=== PATIENT | female | born 1970 | race Caucasian/White ===

== ENCOUNTER → 2023-07-25 13:57 | Outpatient (CLI) | payer OTHER, MEDICAID, SELFPAY ==
[2023-07-25 14:47] LABS: Add Manual Diff / Slide Review NO; Basophils Absolute Auto 0 /uL (0-100); Basophils Percent Auto 0.1 % (0-2); Eosinophils Absolute Auto 400 /uL (0-450); Eosinophils Percent Auto 4.2 % (2-4); Hematocrit 31.4 % (36-46); Hemoglobin 10.7 g/dL (12.0-16.0); Lymphocytes Absolute Auto 1500 /uL (1100-4500); Lymphocytes Percent Auto 14.3 % (25-40); Mean Corpuscular Hemoglobin 29.6 PG (26-34); Monocytes Absolute Auto 700 /uL (0-900); Monocytes Percent Auto 7.3 % (3-14); Neutrophils Absolute Auto 7600 /uL (1500-7000); Neutrophils Percent Auto 74.1 % (50-75); Platelet Count 569 X10^3/uL (150-400); Red Blood Cell Count 3.61 X10^6/uL (4.0-5.2); Red Cell Distribution Width 13.7 % (11.6-14.8); White Blood Cell Count 10.3 X10^3/uL (4.5-11.0)
[2023-07-25 15:16] LABS: Alanine Aminotransferase 19 IU/L (<35); Albumin 3.2 g/dL (3.5-5.0); Albumin Globulin Ratio 0.8 (1.0-2.8); Alkaline Phosphatase 122 U/L (38-126); Aspartate Aminotransferase 25 IU/L (14-36); BUN Creatinine Ratio 20.4 (6-22); Bilirubin Total 0.5 mg/dL (0.2-1.3); Blood Urea Nitrogen 11 mg/dL (7-17); Calcium 9.3 mg/dL (8.4-10.2); Carbon Dioxide 31 mmol/L (22-32); Chloride 98 mmol/L (98-107); Estimated Glomerular Filt Rate > 60 mL/min (>60); Globulin 3.9 g/dL (1.7-4.1); Glucose 95 mg/dL (70-100); HEMOLYSIS < 15 (0-50); Potassium 4.8 mmol/L (3.4-5.1); Sodium 133 mmol/L (137-145); Total Protein 7.1 g/dL (6.3-8.2)
[2023-07-25 15:45] LABS: TSH w/ Reflex to FT4 1.37 uIU/mL (0.47-4.68)
[2023-07-25 15:56] LABS: Erythrocyte Sedimentation Rate 51 MM/HR (0-20)
[2023-07-25 16:06] LABS: Vitamin B12 313 pg/mL (239-931)
== END ==
PROVIDERS: Referring Provider Nurse Practitioner Family; Visit Provider Nurse Practitioner Family
DX: R20.0 Anesthesia of skin (principal)
CPT/HCPCS: 36415; 80053; 82607; 82948; 84443; 85025; 85651

== ENCOUNTER → 2023-07-29 12:39 | Outpatient (CLI) | payer OTHER, MEDICAID, SELFPAY ==
[2023-07-29 13:05] LABS: Reticulocyte Count, Percent 1.2 % (1.1-2.6)
[2023-07-29 13:18] LABS: Iron 29 ug/dL (37-170)
[2023-07-29 14:33] LABS: Percent Iron Saturation 14 % (15-50); Total Iron Binding Capacity 202 ug/dL (265-497); Transferrin 176 mg/dL (206-381)
[2023-07-29 14:52] LABS: Vitamin B12 Reflex MMA if <400 269 pg/mL (239-931)
[2023-07-30 03:36] LABS: Homocysteine 13.6 umol/L (0.0-14.5)
[2023-07-31 10:49] LABS: Alpha-1 Globulin, Ur 3.5 % (.); Beta Globulin, Ur 15.5 % (.); Gamma Globulin, Ur 16.6 % (.); M-Spike % Not Observed % (Not Observed); Urine Total Protein 42.6 mg/dL (Not Estab.)
[2023-07-31 14:45] LABS: Albumin 2.5 g/dL (2.9-4.4); Alpha-1-Globulin 0.3 g/dL (0.0-0.4); Alpha-2-Globulin 1.1 g/dL (0.4-1.0); Gamma Globulin 1.8 g/dL (0.4-1.8); Globulin Total 4.1 g/dL (2.2-3.9); Protein, Total 6.6 g/dL (6.0-8.5)
[2023-07-31 17:12] LABS: ANA Screen, IFA Negative (.)
[2023-08-02 00:07] LABS: Methylmalonic Acid,Serum 652 nmol/L (0-378)
== END ==
PROVIDERS: PCP Family Medicine; Referring Provider Family Medicine; Visit Provider Family Medicine
DX: D64.9 Anemia, unspecified (principal); R20.0 Anesthesia of skin; R20.2 Paresthesia of skin
CPT/HCPCS: 36415; 82306; 82607; 83090; 83540; 83550; 83921; 84155; 84156; 84165; 84166; 84466; 85045; 86038

== ENCOUNTER → 2023-10-17 15:28 | Outpatient (CLI) | payer OTHER, MEDICAID, SELFPAY ==
--- NOTE | 2023-10-17 15:38 | DI.US.S_ITS ---
PROCEDURE: US PERIPH VENOUS LOW EXTREM RT INDICATIONS: POSSIBLE DVT TECHNIQUE: Real-time imaging, as well as color and pulse Doppler interrogation, were performed of the lower extremity deep veins from the inguinal ligament to the popliteal fossa, with documentation of the visualized calf veins. COMPARISON: None. FINDINGS: The common femoral, femoral, popliteal, and the visualized calf veins are normally compressible, and free of intraluminal thrombus. Color and pulse Doppler demonstrate normal phasic intraluminal flow. There is normal augmentation response to distal compression maneuver. IMPRESSION: No right lower extremity DVT. Dictated by: Gamaliel Villagomez M.D. on 10/17/2023 at 17:48 Approved by: Gamaliel Villagomez M.D. on 10/17/2023 at 17:49
== END ==
PROVIDERS: PCP Family Medicine; Referring Provider Family Medicine; Visit Provider Family Medicine
DX: R20.0 Anesthesia of skin (principal); R20.2 Paresthesia of skin; D50.9 Iron deficiency anemia, unspecified; E55.9 Vitamin D deficiency, unspecified; E53.8 Deficiency of other specified B group vitamins; D64.9 Anemia, unspecified
CPT/HCPCS: 36415; 82306; 82607; 82728; 83540; 83550; 83921; 85025; 85651; 93971

== ENCOUNTER → 2023-10-17 16:10 | Outpatient (CLI) | payer OTHER, MEDICAID, SELFPAY ==
[2023-10-17 16:50] LABS: Add Manual Diff / Slide Review NO; Basophils Absolute Auto 100 /uL (0-100); Basophils Percent Auto 1.1 % (0-2); Eosinophils Absolute Auto 400 /uL (0-450); Eosinophils Percent Auto 4.7 % (2-4); Lymphocytes Absolute Auto 1200 /uL (1100-4500); Lymphocytes Percent Auto 16.2 % (25-40); Mean Corpuscular HGB Conc 33.8 % (30-36); Mean Corpuscular Hemoglobin 26.4 PG (26-34); Mean Corpuscular Volume 78.1 fL (80-100); Monocytes Absolute Auto 400 /uL (0-900); Monocytes Percent Auto 5.8 % (3-14); Neutrophils Absolute Auto 5400 /uL (1500-7000); Neutrophils Percent Auto 72.2 % (50-75); Platelet Count 640 X10^3/uL (150-400); Red Blood Cell Count 2.66 X10^6/uL (4.0-5.2); Red Cell Distribution Width 16.1 % (11.6-14.8); White Blood Cell Count 7.5 X10^3/uL (4.5-11.0)
[2023-10-17 17:03] LABS: Hematocrit 21.2 % (36-46)
[2023-10-17 17:30] LABS: Vitamin D 25 Hydroxy (D3) 32.5 ng/mL (30.0-100.0)
[2023-10-17 17:42] LABS: Erythrocyte Sedimentation Rate > 140 MM/HR (0-20)
[2023-10-17 17:46] LABS: Ferritin 214 ng/mL (11-264)
[2023-10-17 17:51] LABS: HEMOLYSIS < 15 (0-50); Iron 32 ug/dL (37-170)
[2023-10-17 18:00] LABS: Vitamin B12 706 pg/mL (239-931)
[2023-10-17 18:02] LABS: Percent Iron Saturation 15 % (15-50); Total Iron Binding Capacity 217 ug/dL (265-497); Transferrin 184 mg/dL (206-381)
[2023-10-22 07:59] LABS: Methylmalonic Acid,Serum 712 nmol/L (0-378)
== END ==
LOC: LAB 16:18
PROVIDERS: PCP Family Medicine; Referring Provider Family Medicine; Visit Provider Family Medicine
DX: D50.9 Iron deficiency anemia, unspecified (principal); E55.9 Vitamin D deficiency, unspecified; E53.8 Deficiency of other specified B group vitamins; D64.9 Anemia, unspecified
CPT/HCPCS: 36415; 82306; 82607; 82728; 83540; 83550; 83921; 85025; 85651

== ENCOUNTER → 2023-11-05 12:05 | Outpatient (CLI) | payer OTHER, MEDICAID, SELFPAY ==
[2023-11-05 12:57] LABS: Add Manual Diff / Slide Review NO; Basophils Absolute Auto 100 /uL (0-100); Basophils Percent Auto 1.3 % (0-2); Eosinophils Absolute Auto 500 /uL (0-450); Eosinophils Percent Auto 7.8 % (2-4); Lymphocytes Absolute Auto 1000 /uL (1100-4500); Lymphocytes Percent Auto 15.2 % (25-40); Mean Corpuscular HGB Conc 34.2 % (30-36); Mean Corpuscular Hemoglobin 27.8 PG (26-34); Mean Corpuscular Volume 81.3 fL (80-100); Monocytes Absolute Auto 600 /uL (0-900); Monocytes Percent Auto 8.5 % (3-14); Neutrophils Absolute Auto 4500 /uL (1500-7000); Neutrophils Percent Auto 67.2 % (50-75); Platelet Count 497 X10^3/uL (150-400); Red Blood Cell Count 2.34 X10^6/uL (4.0-5.2); Red Cell Distribution Width 18.4 % (11.6-14.8); White Blood Cell Count 6.8 X10^3/uL (4.5-11.0)
[2023-11-05 13:09] LABS: Hemoglobin 6.5 g/dL (12.0-16.0)
[2023-11-05 13:11] LABS: Alanine Aminotransferase 20 IU/L (<35); Albumin Globulin Ratio 0.8 (1.0-2.8); Alkaline Phosphatase 102 U/L (38-126); Aspartate Aminotransferase 23 IU/L (14-36); Bilirubin Total 0.4 mg/dL (0.2-1.3); Blood Urea Nitrogen 54 mg/dL (7-17); Carbon Dioxide 25 mmol/L (22-32); Chloride 102 mmol/L (98-107); Estimated Glomerular Filt Rate 18 mL/min (>60); Globulin 3.7 g/dL (1.7-4.1); Glucose 93 mg/dL (70-100); HEMOLYSIS < 15 (0-50); Sodium 131 mmol/L (137-145); Total Protein 6.7 g/dL (6.3-8.2)
[2023-11-05 13:16] LABS: NT-proBNP (BNP-Adult 18+) 2400 pg/mL (<125)
[2023-11-05 13:18] LABS: Potassium 6.4 mmol/L (3.4-5.1)
[2023-11-05 14:17] LABS: Erythrocyte Sedimentation Rate 102 MM/HR (0-20)
[2023-11-06 04:47] LABS: Homocysteine 21.1 umol/L (0.0-14.5)
== END ==
PROVIDERS: PCP Family Medicine; Referring Provider Family Medicine; Visit Provider Family Medicine
DX: D64.9 Anemia, unspecified (principal); D50.9 Iron deficiency anemia, unspecified; D75.839 Thrombocytosis, unspecified; R53.83 Other fatigue; R70.0 Elevated erythrocyte sedimentation rate; R60.0 Localized edema; R06.02 Shortness of breath; R06.09 Other forms of dyspnea
CPT/HCPCS: 36415; 80053; 83090; 83880; 85025; 85651

== ENCOUNTER 2023-11-07 17:04 | Inpatient (IN) | payer OTHER, MEDICAID, SELFPAY ==
[2023-11-07] VITALS (23 sets, daily range): BP systolic 130–154; BP diastolic 73–82; PULSE 94–120; RESP 15–23; TEMP 37–37.7; O2SAT 96–100; BMI 19.3
[2023-11-07 17:51] LABS: INR 1.1 (0.9-1.3); Prothrombin Time 12.4 SECONDS (9.4-12.5)
[2023-11-07 17:52] LABS: Add Manual Diff / Slide Review NO; Basophils Absolute Auto 200 /uL (0-100); Basophils Percent Auto 1.2 % (0-2); Eosinophils Absolute Auto 100 /uL (0-450); Hematocrit 21.1 % (36-46); Hemoglobin 7.1 g/dL (12.0-16.0); Lymphocytes Absolute Auto 1000 /uL (1100-4500); Lymphocytes Percent Auto 6.9 % (25-40); Mean Corpuscular HGB Conc 33.4 % (30-36); Mean Corpuscular Hemoglobin 27.4 PG (26-34); Monocytes Absolute Auto 900 /uL (0-900); Monocytes Percent Auto 6.5 % (3-14); Neutrophils Absolute Auto 12000 /uL (1500-7000); Neutrophils Percent Auto 84.4 % (50-75); Platelet Count 572 X10^3/uL (150-400); Red Blood Cell Count 2.57 X10^6/uL (4.0-5.2); Red Cell Distribution Width 18.5 % (11.6-14.8); White Blood Cell Count 14.2 X10^3/uL (4.5-11.0)
[2023-11-07 17:54] LABS: PTT Partial Thromboplastin Tim 33 SECONDS (25.1-36.5)
[2023-11-07 17:55] LABS: Alanine Aminotransferase 16 IU/L (<35); Albumin 3.4 g/dL (3.5-5.0); Albumin Globulin Ratio 0.8 (1.0-2.8); Alkaline Phosphatase 114 U/L (38-126); Aspartate Aminotransferase 22 IU/L (14-36); BUN Creatinine Ratio 16.6 (6-22); Bilirubin Total 0.5 mg/dL (0.2-1.3); Blood Urea Nitrogen 51 mg/dL (7-17); Calcium 8.9 mg/dL (8.4-10.2); Carbon Dioxide 23 mmol/L (22-32); Chloride 98 mmol/L (98-107); Creatine Kinase 33 U/L (30-135); Estimated Glomerular Filt Rate 18 mL/min (>60); Globulin 4.1 g/dL (1.7-4.1); Glucose 120 mg/dL (70-100); HEMOLYSIS < 15 (0-50); Potassium 5.1 mmol/L (3.4-5.1); Sodium 128 mmol/L (137-145); Total Protein 7.5 g/dL (6.3-8.2)
[2023-11-07 18:06] LABS: NT-proBNP (BNP-Adult 18+) 2900 pg/mL (<125); Troponin I < 0.012 ng/mL (0.01-0.034)
--- NOTE | 2023-11-07 18:12 | ED_ITS ---
HPI - Recheck/Abnormal Lab/Rx General Chief Complaint: Recheck/Abnormal Lab/Rx Stated Complaint: states low hemoglobin level/Dr ref Time Seen by Provider: 11/07/23 17:53 Source: patient Mode of arrival: Ambulatory History of Present Illness HPI narrative: 53-year-old female with history of anemia presents as a referral from her doctor's office for abnormal laboratory work. Patient has been followed by her primary care physician for the last month for worsening anemia. In July 2023 patient's hemoglobin was 10.7 and creatinine 0.54, however in October hemoglobin was found to be 7.0. Patient was started on B12 and iron supplements. On repeat labs patient's hemoglobin was reported to be 6.5, potassium 6.4, and with creatinine of 3.0 and patient was referred to the emergency department. Patient reports fatigue and mild shortness of breath. She states that she has had intermittent several pound weight loss and weight gain depending on her appetite but no significant weight changes Related Data Home Medications Medication Instructions Recorded Confirmed ferrous sulfate 325 mg (65 mg 325 mg PO DAILY 07/29/23 11/05/23 iron) tablet multivitamin 1 tab PO DAILY 07/29/23 11/05/23 Allergies Allergy/AdvReac Type Severity Reaction Status Date / Time amoxicillin Allergy Intermediate Rash Verified 11/07/23 21:01 Review of Systems Review of Systems Narrative: Negative except as noted above Patient History Medical History Near-sightedness Family History Mother Cancer Brother Heart problem Social History household members: none Smoking Status: Never smoker alcohol intake: never Smoking Status: Never smoker Exam Initial Vital Signs Initial Vital Signs: Vital Signs Temperature 98.8 F 11/07/23 17:08 Pulse Rate 120 H 11/07/23 17:08 Respiratory Rate 20 11/07/23 17:08 Blood Pressure 154/74 H 11/07/23 17:08 Pulse Oximetry 100 11/07/23 17:08 Oxygen Delivery Method Room Air 11/07/23 17:08 Const: Awake, alert, nontoxic appearing, frail Cardiac: Tachycardia, regular rhythm RESP: unlabored, clear bilaterally, no wheezing GI: Soft, nontender, nondistended, no rebound, no guarding MSK: Atraumatic, full range of motion, pulses equal Skin: Warm, Dry, intact, no rashes Neuro: AO x3, CN II-XII grossly intact, moves all extremities Course Orders Ordered: ED Orders 11/07/23 19:15 XR chest 1V Stat 11/07/23 19:52 CT chest wo con Stat 11/07/23 22:13 Ferritin Stat 11/07/23 22:14 Iron Stat 11/07/23 22:21 HH [Hemoglobin and Hematocrit] Stat 11/07/23 22:27 UA Complete [Urinalysis and Microscopic] Stat 11/07/23 22:52 COVID19 -Nasal RAPID Stat Acetaminophen (Acetaminophen 325 Mg Tablet) 650 mg PO Q6H PRN PRN Reason: Fever/Mild Pain (1-3) Al Hydrox/Mg Hydrox/Simethicone (Mag Hydrox/Alum/Simeth 30 Ml Udc) 30 ml PO Q6HR PRN PRN Reason: Dyspepsia Sodium Chloride (Normal Saline 0.9%) 1,000 mls @ 100 mls/hr IV CONT ARCELIA Ceftriaxone Sodium 1,000 mg/ (Sodium Chloride) 100 mls @ 200 mls/hr IV Q24H ARCELIA Azithromycin 500 mg/ Dextrose 250 mls @ 250 mls/hr IV Q24H ARCELIA Naloxone HCl (Naloxone 0.4 Mg/Ml Vial) 0.2 mg IV Q2MIN PRN PRN Reason: Opiate Reversal Ondansetron HCl (Ondansetron 4 Mg/2 Ml Inj) 4 mg IV NOW PRN PRN Reason: Nausea And Vomiting Last Admin: 11/07/23 21:18 Dose: 4 mg Documented By: Admin: 11/07/23 18:36 Dose: 4 mg Documented By: ISHA Ondansetron HCl (Ondansetron 4 Mg Odt) 4 mg SL NOW PRN PRN Reason: Nausea And Vomiting Ondansetron HCl (Ondansetron 4 Mg/2 Ml Inj) 4 mg IV Q8HR PRN PRN Reason: Nausea And Vomiting Discontinued Medications Ceftriaxone Sodium 2,000 mg/ (Sodium Chloride) 100 mls @ 200 mls/hr IV NOW ONE Stop: 11/07/23 20:27 Last Infusion: 11/07/23 21:33 Dose: Infused Documented By: Admin: 11/07/23 20:58 Dose: 200 mls/hr Documented By: ELVIRA Azithromycin 500 mg/ Dextrose 250 mls @ 250 mls/hr IV NOW ONE Stop: 11/07/23 20:27 Last Infusion: 11/07/23 22:46 Dose: Infused Documented By: Admin: 11/07/23 21:36 Dose: 250 mls/hr Documented By: ELVIRA Metoclopramide HCl (Metoclopramide 10 Mg/2 Ml Inj) 10 mg IV NOW ONE Stop: 11/07/23 22:59 Vital Signs Vital signs: Vital Signs - 8 hr 11/07/23 20:12 11/07/23 20:12 11/07/23 20:25 Temperature Pulse Rate 103 H Respiratory Rate 23 Blood Pressure 140/76 136/76 Pulse Oximetry 97 Oxygen Delivery Method 11/07/23 20:25 11/07/23 20:27 11/07/23 20:30 Temperature 98.6 F Pulse Rate 99 H 100 H Respiratory Rate 17 16 Blood Pressure 136/76 136/76 Pulse Oximetry 97 Oxygen Delivery Method Room Air 11/07/23 20:30 11/07/23 20:43 11/07/23 20:43 Temperature 99.5 F Pulse Rate 101 H 98 H Respiratory Rate 17 16 Blood Pressure 139/76 139/76 Pulse Oximetry 96 Oxygen Delivery Method Room Air 11/07/23 20:43 11/07/23 21:00 11/07/23 21:00 Temperature Pulse Rate 98 H 99 H Respiratory Rate 20 21 Blood Pressure 143/80 H Pulse Oximetry 97 98 Oxygen Delivery Method Room Air 11/07/23 21:30 11/07/23 21:30 11/07/23 22:00 Temperature Pulse Rate 101 H Respiratory Rate 18 Blood Pressure 146/74 H 137/78 Pulse Oximetry 97 Oxygen Delivery Method Room Air 11/07/23 22:00 11/07/23 22:18 11/07/23 22:19 Temperature 99.9 F H Pulse Rate 105 H 102 H Respiratory Rate 17 18 Blood Pressure 130/82 130/82 Pulse Oximetry 97 Oxygen Delivery Method Room Air 11/07/23 22:19 11/07/23 22:32 11/07/23 22:33 Temperature Pulse Rate 102 H 99 H 97 H Respiratory Rate 17 18 Blood Pressure Pulse Oximetry 98 97 97 Oxygen Delivery Method Room Air Room Air 11/07/23 22:33 11/07/23 23:00 11/07/23 23:00 Temperature Pulse Rate 98 H Respiratory Rate 17 Blood Pressure 137/76 132/80 Pulse Oximetry 98 Oxygen Delivery Method Room Air 11/07/23 23:30 11/07/23 23:30 11/08/23 00:00 Temperature Pulse Rate 97 H Respiratory Rate 17 Blood Pressure 141/79 H 140/80 Pulse Oximetry 97 Oxygen Delivery Method Room Air 11/08/23 00:00 11/08/23 00:30 11/08/23 00:30 Temperature Pulse Rate 95 H 87 Respiratory Rate 18 18 Blood Pressure 133/78 Pulse Oximetry 97 96 Oxygen Delivery Method Room Air Room Air 11/08/23 01:00 11/08/23 01:00 11/08/23 01:30 Temperature Pulse Rate 90 Respiratory Rate 17 Blood Pressure 140/72 142/80 H Pulse Oximetry 96 Oxygen Delivery Method Room Air 11/08/23 01:30 Temperature Pulse Rate 95 H Respiratory Rate 19 Blood Pressure Pulse Oximetry 97 Oxygen Delivery Method Room Air MDM - Recheck/Abnormal Lab/Rx Differential Diagnosis Differential diagnosis: Likely encounter for medication refill, encounter for wound recheck and encounter for recheck of burn Lab Data 11/07/23 22:21 11/07/23 17:28 Labs: Lab Results 11/07/23 11/07/23 11/07/23 Range/Units 17:28 22:13 22:14 WBC 14.2 H (4.5-11.0) X10^3/uL RBC 2.57 L (4.0-5.2) X10^6/uL Hgb 7.1 L (12.0-16.0) g/dL Hct 21.1 L (36-46) % MCV 82.0 (80-100) fL MCH 27.4 (26-34) PG MCHC 33.4 (30-36) % RDW 18.5 H (11.6-14.8) % Plt Count 572 H (150-400) X10^3/uL Neut % (Auto) 84.4 H (50-75) % Lymph % (Auto) 6.9 L (25-40) % Roane % (Auto) 6.5 (3-14) % Eos % (Auto) 1.0 L (2-4) % Baso % (Auto) 1.2 (0-2) % Neut # (Auto) 50941 H (2618-9393) /uL Lymph # (Auto) 1000 L (3375-4112) /uL Roane # (Auto) 900 (0-900) /uL Eos # (Auto) 100 (0-450) /uL Baso # (Auto) 200 H (0-100) /uL PT 12.4 (9.4-12.5) SECONDS INR 1.1 (0.9-1.3) APTT 33 (25.1-36.5) SECONDS Sodium 128 L (137-145) mmol/L Potassium 5.1 D (3.4-5.1) mmol/L Chloride 98 (98-107) mmol/L Carbon Dioxide 23 (22-32) mmol/L BUN 51 H (7-17) mg/dL Creatinine 3.07 H (0.52-1.04) mg/dL Estimated GFR 18 L (>60) mL/min BUN/Creatinine Ratio 16.6 (6-22) Glucose 120 H (70-100) mg/dL Lactate 0.7 (0.7-2.1) mmol/L Calcium 8.9 (8.4-10.2) mg/dL Iron 34 L (37-170) ug/dL Ferritin 174 (11-264) ng/mL Total Bilirubin 0.5 (0.2-1.3) mg/dL AST 22 (14-36) IU/L ALT 16 (<35) IU/L Alkaline Phosphatase 114 (38-126) U/L Lactate Dehydrogenase 167 (120-246) U/L Total Creatine Kinase 33 (30-135) U/L Troponin I < 0.012 (0.01-0.034) ng/mL NT-Pro-B Natriuret Pep 2900 H (<125) pg/mL Total Protein 7.5 (6.3-8.2) g/dL Albumin 3.4 L (3.5-5.0) g/dL Globulin 4.1 (1.7-4.1) g/dL Albumin/Globulin Ratio 0.8 L (1.0-2.8) Urine Color Urine Appearance Urine pH (4.5-8.0) Ur Specific [place] (1.000-1.035) Urine Protein (Negative) Urine Glucose (UA) (Negative) g/dL Urine Ketones (NEGATIVE) Urine Occult Blood (Negative) Urine Nitrate (Negative) Urine Bilirubin (NEGATIVE) Urine Urobilinogen (0.2) E.U./dL Ur Leukocyte Esterase (NEGATIVE) Urine RBC (0-5/HPF) Urine WBC (0-5/HPF) Ur Squamous Epith Cells (0-5/HPF) Urine Bacteria (None) Ur Culture Indicated? Vol Urine Centrifuged SARS-CoV-2 (PCR) (Negative) Blood Type A Positive Antibody Screen Negative Crossmatch See Detail 11/07/23 11/07/23 11/07/23 Range/Units 22:21 22:27 22:52 WBC (4.5-11.0) X10^3/uL RBC (4.0-5.2) X10^6/uL Hgb 7.2 L (12.0-16.0) g/dL Hct 21.1 L (36-46) % MCV (80-100) fL MCH (26-34) PG MCHC (30-36) % RDW (11.6-14.8) % Plt Count (150-400) X10^3/uL Neut % (Auto) (50-75) % Lymph % (Auto) (25-40) % Roane % (Auto) (3-14) % Eos % (Auto) (2-4) % Baso % (Auto) (0-2) % Neut # (Auto) (5930-5314) /uL Lymph # (Auto) (1313-9814) /uL Roane # (Auto) (0-900) /uL Eos # (Auto) (0-450) /uL Baso # (Auto) (0-100) /uL PT (9.4-12.5) SECONDS INR (0.9-1.3) APTT (25.1-36.5) SECONDS Sodium (137-145) mmol/L Potassium (3.4-5.1) mmol/L Chloride (98-107) mmol/L Carbon Dioxide (22-32) mmol/L BUN (7-17) mg/dL Creatinine (0.52-1.04) mg/dL Estimated GFR (>60) mL/min BUN/Creatinine Ratio (6-22) Glucose (70-100) mg/dL Lactate (0.7-2.1) mmol/L Calcium (8.4-10.2) mg/dL Iron (37-170) ug/dL Ferritin (11-264) ng/mL Total Bilirubin (0.2-1.3) mg/dL AST (14-36) IU/L ALT (<35) IU/L Alkaline Phosphatase (38-126) U/L Lactate Dehydrogenase (120-246) U/L Total Creatine Kinase (30-135) U/L Troponin I (0.01-0.034) ng/mL NT-Pro-B Natriuret Pep (<125) pg/mL Total Protein (6.3-8.2) g/dL Albumin (3.5-5.0) g/dL Globulin (1.7-4.1) g/dL Albumin/Globulin Ratio (1.0-2.8) Urine Color Yellow Urine Appearance Clear Urine pH 7.5 (4.5-8.0) Ur Specific [place] 1.020 (1.000-1.035) Urine Protein 3+ H (Negative) Urine Glucose (UA) Negative (Negative) g/dL Urine Ketones Negative (NEGATIVE) Urine Occult Blood 3+ H (Negative) Urine Nitrate Negative (Negative) Urine Bilirubin Negative (NEGATIVE) Urine Urobilinogen 0.2 (0.2) E.U./dL Ur Leukocyte Esterase Negative (NEGATIVE) Urine RBC 10-30/hpf H (0-5/HPF) Urine WBC None seen (0-5/HPF) Ur Squamous Epith Cells 0-1 /hpf (0-5/HPF) Urine Bacteria None seen (None) Ur Culture Indicated? Cult not indicated Vol Urine Centrifuged 10ml (spun) SARS-CoV-2 (PCR) Negative (Negative) Blood Type Antibody Screen Crossmatch Imaging Data Chest x-ray: Radiologist's Impression: PROCEDURE: XR CHEST 1V INDICATIONS: Flu like symptoms TECHNIQUE: One view of the chest was acquired. COMPARISON: None. FINDINGS: Surgical changes and devices: None. Lungs and pleura: Probable masslike no Modic infiltrate, right mid lung field. No pleural effusions or pneumothorax. Mediastinum: Mediastinal contours appear normal. Heart size is normal. Bones and chest wall: No suspicious bony lesions. Overlying soft tissues appear unremarkable. IMPRESSION: Probable focal mass-like pneumonia, right mid lung field. Comment: Progress films are recommended until clear. Dictated by: Conor Green M.D. on 11/07/2023 at 19:38 Approved by: Conor Green M.D. on 11/07/2023 at 19:39 CT scan - chest: Radiologist's Impression: PROCEDURE: CT CHEST WO CON INDICATIONS: R LUNG CONSOLIDATION, RAPIDLY PROGRESSIVE ANEMIA TECHNIQUE: Noncontrast 5 mm thick sections acquired from the pulmonary apices to the posterior costophrenic angles. 1 mm lung window, 5 mm thick coronal and sagittal and 7 mm axial MIP reformats were then acquired. For radiation dose reduction, the following was used: automated exposure control, adjustment of mA and/or kV according to patient size. COMPARISON: [facility], CR, XR CHEST 1V, 11/07/2023, 19:18. FINDINGS: Image quality: Diagnostic. Lower Neck: No enlarged lymph nodes. Thyroid: No thyroid nodules which require sonographic follow up, per consensus guidelines. Axillae: No enlarged lymph nodes. Chest Wall: Unremarkable. Bones: Minimal dextroconvex scoliotic curvature is seen. Focal lower thoracic spine degenerative changes are seen. Lungs and Pleura: Irregular infiltrate can be seen within the right middle lobe anteriorly. There is additional moderate infiltrate seen within the right lower lobe. No left-sided infiltrate is seen. Mild dependent atelectasis can be seen on both sides. No pneumothorax or pleural effusions are seen. Heart: Heart size is normal. No pericardial effusion. Thoracic Vessels: The aorta and pulmonary arteries demonstrate normal size. Mediastinum and Stacy: No enlarged lymph nodes. Esophagus: No wall thickening. No hiatal hernia. Upper Abdomen: Visualized upper abdomen solid organs and bowel loops appear normal. IMPRESSION: Irregular infiltrate seen involving the right middle lobe and the right lower lobe. No hematomas are seen in this patient with a given history of rapidly progressive anemia. Dictated by: Aron Nichols M.D. on 11/07/2023 at 19:19 Approved by: Aron Nichols M.D. on 11/07/2023 at 19:20 MDM Narrative Medical decision making narrative: Abnormal labs, marked decrease in hemoglobin and increase in creatinine within the last 4 months. Patient denies bleeding, rectal exam shows soft brown stool without gross blood or melena. Laboratory work is significant for hemoglobin 7.1, up from 6.5 two days prior. Creatinine 3.07 and GFR 18. CO2 23, LDH 167. CXR with R sided consolidation, CT chest showed R sided irregular infiltrates on R hand side. PORT/PSI score 108 based on age and risk factors, indicating need for IV antibiotics. Repeat Hgb after 1u PRBCs 7.2 despite no administration of IV fluids. Heart rate has come down from 120s to 90s however Case discussed with Dr. Ludwig of Heme/onc at [facility], who agrees with transfusion, however does not believe there is indication for emergent transfer at this time. Based on patient's presentation diagnosis is likely multiple myeloma, iron deficiency anemia, or chronic kidney failure. Any electrophoresis studies would take days to come back and would not benefit from inpatient workup. He did take down the patient's information and we will make sure that the clinic contact the patient for an appointment next week. Case also discussed with nephrology Dr. Marc, who stated that patient would need to see nephrology, however their clinic is no longer taking consults due to a physician leaving their service. Case discussed with on-call hospitalist at [facility], who declined transfer, recommending patient be transfused as needed for anemia, and IV antibiotics for PNA, however without acidosis or hyperkalemia patient does not need emergent nephrology consult. Discharge Plan Departure Patient Disposition: Admitted As Inpatient Clinical Impression: Anemia, Acute kidney failure, Pneumonia Admit Date/Time: 11/08/23 01:35 Admit Provider: Tavon Whitley
[2023-11-07] MEDS: ONDANSETRON 4 MG/2 ML INJ IV ×2 (18:36→21:18)
--- NOTE | 2023-11-07 19:15 | DI.RAD.S_ITS ---
PROCEDURE: XR CHEST 1V INDICATIONS: Flu like symptoms TECHNIQUE: One view of the chest was acquired. COMPARISON: None. FINDINGS: Surgical changes and devices: None. Lungs and pleura: Probable masslike no Modic infiltrate, right mid lung field. No pleural effusions or pneumothorax. Mediastinum: Mediastinal contours appear normal. Heart size is normal. Bones and chest wall: No suspicious bony lesions. Overlying soft tissues appear unremarkable. IMPRESSION: Probable focal mass-like pneumonia, right mid lung field. Comment: Progress films are recommended until clear. Dictated by: Conor Green M.D. on 11/07/2023 at 19:38 Approved by: Conor Green M.D. on 11/07/2023 at 19:39
--- NOTE | 2023-11-07 19:26 | PC.NURSE ---
Pt is able to sign and consent to blood transfusion.
[2023-11-07 19:29] LABS: Lactate (Lactic Acid) 0.7 mmol/L (0.7-2.1); Lactate Dehydrogenase 167 U/L (120-246)
--- NOTE | 2023-11-07 19:52 | DI.CT.S_ITS ---
PROCEDURE: CT CHEST WO CON INDICATIONS: R LUNG CONSOLIDATION, RAPIDLY PROGRESSIVE ANEMIA TECHNIQUE: Noncontrast 5 mm thick sections acquired from the pulmonary apices to the posterior costophrenic angles. 1 mm lung window, 5 mm thick coronal and sagittal and 7 mm axial MIP reformats were then acquired. For radiation dose reduction, the following was used: automated exposure control, adjustment of mA and/or kV according to patient size. COMPARISON: [facility], CR, XR CHEST 1V, 11/07/2023, 19:18. FINDINGS: Image quality: Diagnostic. Lower Neck: No enlarged lymph nodes. Thyroid: No thyroid nodules which require sonographic follow up, per consensus guidelines. Axillae: No enlarged lymph nodes. Chest Wall: Unremarkable. Bones: Minimal dextroconvex scoliotic curvature is seen. Focal lower thoracic spine degenerative changes are seen. Lungs and Pleura: Irregular infiltrate can be seen within the right middle lobe anteriorly. There is additional moderate infiltrate seen within the right lower lobe. No left-sided infiltrate is seen. Mild dependent atelectasis can be seen on both sides. No pneumothorax or pleural effusions are seen. Heart: Heart size is normal. No pericardial effusion. Thoracic Vessels: The aorta and pulmonary arteries demonstrate normal size. Mediastinum and Stacy: No enlarged lymph nodes. Esophagus: No wall thickening. No hiatal hernia. Upper Abdomen: Visualized upper abdomen solid organs and bowel loops appear normal. IMPRESSION: Irregular infiltrate seen involving the right middle lobe and the right lower lobe. No hematomas are seen in this patient with a given history of rapidly progressive anemia. Dictated by: Aron Nichols M.D. on 11/07/2023 at 19:19 Approved by: Aron Nichols M.D. on 11/07/2023 at 19:20
--- NOTE | 2023-11-07 20:02 | PC.NURSE ---
blood still not ready for transfusion, lab needed one extra tube sent. This was done and is sent. Pt sitting in bed comfortably ow. Denies any complaints at this time.
--- NOTE | 2023-11-07 20:51 | PC.NURSE ---
MD Byrd at bedside, did rectal exam. Did not was to bedside guaiac test.
[2023-11-07] MEDS: cefTRIAXone 2,000 MG in SODIUM CHLORIDE 0.9% 100 ML 200 MG IV (20:58)
--- NOTE | 2023-11-07 21:23 | PC.NURSE ---
MD gave verbal order to allow pt to drink water. Pt was able to tolerate a few sips before she started vomiting about 200 mL of green bile. Pt was given meds per MAR. Is doing better now. Sister was at bedside. Denied any further needs at this time.
[2023-11-07] MEDS: AZITHROMYCIN 500 MG in DEXTROSE 5% IN WATER 250 ML 250 MG IV (21:36)
[2023-11-07 22:26] LABS: Hematocrit 21.1 % (36-46); Hemoglobin 7.2 g/dL (12.0-16.0)
[2023-11-07 22:44] LABS: Appearance Urine UA CLEAR; Bilirubin Urine UA NEGATIVE (NEGATIVE); Color Urine UA YELLOW; Glucose Urine UA NEGATIVE (Negative); Ketones Urine UA NEGATIVE (NEGATIVE); Leukocyte Esterase Urine UA NEGATIVE (NEGATIVE); Nitrite Urine UA NEGATIVE (Negative); Occult Blood Urine UA 3+ (Negative); Protein Urine UA 3+ (Negative); Urobilinogen Urine UA 0.2 E.U./dL (0.2); pH Urine UA 7.5 (4.5-8.0)
[2023-11-07 22:51] LABS: RBC Urine 10-30/HPF (0-5/HPF); Urine Volume 10mL (spun); WBC Urine None Seen (0-5/HPF)
[2023-11-07 22:52] LABS: Bacteria Urine None Seen; Culture Indicated Urine Cult Not Indicated; Squamous Epithelial Cell Urine 0-1 /HPF (0-5/HPF)
[2023-11-07 23:11] LABS: COVID19 -Nasal RAPID Negative (Negative)
[2023-11-07 23:43] LABS: Ferritin 174 ng/mL (11-264)
[2023-11-08] VITALS (11 sets, daily range): BP systolic 116–142; BP diastolic 70–80; PULSE 82–97; RESP 16–19; TEMP 36.4–37.5; O2SAT 96–100; BMI 19.3
[2023-11-08 00:05] LABS: Iron 34 ug/dL (37-170)
--- NOTE | 2023-11-08 01:40 | PC.NURSE ---
Pt updated on change of plan to not be transferred to [facility] and to be admitted to this hospital. Pt verbalized understanidng. Denies any needs at this time. Says she is not nauseated. Denies any other complaints at this time.
--- NOTE | 2023-11-08 01:40 | PC.NURSE ---
I called [facility] regarding the pt for a possible transfer for higher level of care. I spoke with Deric in their transfer center and he paged out to their hospitalist. After the hospitalist at [facility] and Dr. Byrd here in the ER spoke, it was determined that the pt would stay here to receive treatment instead of being transferred out. Deric called me back and said that if for whatever reason the pt starts to decline and get worse, that [facility] would accept her for transfer. The pt is still currently on the waitlist up at [facility]. CHRISSIE Bo notified. DR. Byrd notified.
[2023-11-08] MEDS: SODIUM CHLORIDE 0.9% 1,000 ML 100 ML IV ×2 (02:30→18:24)
[2023-11-08 05:52] LABS: Add Manual Diff / Slide Review NO; Basophils Absolute Auto 0 /uL (0-100); Eosinophils Absolute Auto 100 /uL (0-450); Eosinophils Percent Auto 0.4 % (2-4); Hematocrit 21.8 % (36-46); Hemoglobin 7.5 g/dL (12.0-16.0); Lymphocytes Absolute Auto 1400 /uL (1100-4500); Lymphocytes Percent Auto 8.9 % (25-40); Mean Corpuscular HGB Conc 34.4 % (30-36); Mean Corpuscular Hemoglobin 28.1 PG (26-34); Mean Corpuscular Volume 81.7 fL (80-100); Monocytes Absolute Auto 1000 /uL (0-900); Monocytes Percent Auto 6.7 % (3-14); Neutrophils Absolute Auto 12700 /uL (1500-7000); Platelet Count 487 X10^3/uL (150-400); Red Blood Cell Count 2.67 X10^6/uL (4.0-5.2); Red Cell Distribution Width 17.5 % (11.6-14.8); White Blood Cell Count 15.1 X10^3/uL (4.5-11.0)
[2023-11-08 06:00] LABS: HEMOLYSIS < 15 (0-50)
--- NOTE | 2023-11-08 06:06 | PC.NURSE ---
Admit/NOC Shift Note- Patient arrived to room via stretcher from ER at 0205. Patient able to walk on her own from hallway to bed. Steady gait noted. Patient alert and oriented and able to make needs known to staff. mAdmit queations done, medications reviewed, physical assessment done, and skin check completed. Patient oriented to bed andf bed controls, room, lights, menu, bathroom, phone, and call langston/TV remote. Patient agrees kasey call for assistance. Call langston and phone within reach.
[2023-11-08 06:07] LABS: BUN Creatinine Ratio 15.4 (6-22); Blood Urea Nitrogen 48 mg/dL (7-17); Calcium 8.3 mg/dL (8.4-10.2); Carbon Dioxide 22 mmol/L (22-32); Chloride 100 mmol/L (98-107); Estimated Glomerular Filt Rate 17 mL/min (>60); Glucose 109 mg/dL (70-100); Potassium 4.8 mmol/L (3.4-5.1); Sodium 128 mmol/L (137-145)
[2023-11-08 06:37] LABS: NT-proBNP (BNP-Adult 18+) 2740 pg/mL (<125)
--- NOTE | 2023-11-08 06:43 | P.HP_ITS ---
History of Present Illness History of Present Illness Chief complaint: states low hemoglobin level/Dr ref Narrative: From the ED 53-year-old female with history of anemia presents as a referral from her doctor's office for abnormal laboratory work. Patient has been followed by her primary care physician for the last month for worsening anemia. In July 2023 patient's hemoglobin was 10.7 and creatinine 0.54, however in October hemoglobin was found to be 7.0. Patient was started on B12 and iron supplements. On repeat labs patient's hemoglobin was reported to be 6.5, potassium 6.4, and with creatinine of 3.0 and patient was referred to the emergency department. Patient reports fatigue and mild shortness of breath. Admitted for IVFs , transfused one unit of PRBCs. 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 Family History Mother Cancer Brother Heart problem Social History household members: none Smoking Status: Never smoker alcohol intake: never Meds Home Medications and Allergies Home Medications Medication Instructions Recorded Confirmed Type ferrous sulfate 325 mg (65 mg 325 mg PO DAILY 07/29/23 11/05/23 History iron) tablet multivitamin 1 tab PO DAILY 07/29/23 11/05/23 History Allergies Allergy/AdvReac Type Severity Reaction Status Date / Time amoxicillin Allergy Intermediate Rash Verified 11/07/23 21:01 Review of Systems Constitutional Comments: generalized weakness Cardiovascular Comments: w/o chest pain Respiratory Comments: exertional dyspnea Exam Vital Signs (past 8 hours): - 11/07/23 23:00 11/07/23 23:00 11/07/23 23:30 Temperature Pulse Rate 98 H Respiratory Rate 17 Blood Pressure 132/80 141/79 H Pulse Oximetry 98 Oxygen Delivery Method Room Air Oxygen Flow Rate 11/07/23 23:30 11/08/23 00:00 11/08/23 00:00 Temperature Pulse Rate 97 H 95 H Respiratory Rate 17 18 Blood Pressure 140/80 Pulse Oximetry 97 97 Oxygen Delivery Method Room Air Room Air Oxygen Flow Rate 11/08/23 00:30 11/08/23 00:30 11/08/23 01:00 Temperature Pulse Rate 87 Respiratory Rate 18 Blood Pressure 133/78 140/72 Pulse Oximetry 96 Oxygen Delivery Method Room Air Oxygen Flow Rate 11/08/23 01:00 11/08/23 01:30 11/08/23 01:30 Temperature Pulse Rate 90 95 H Respiratory Rate 17 19 Blood Pressure 142/80 H Pulse Oximetry 96 97 Oxygen Delivery Method Room Air Room Air Oxygen Flow Rate 11/08/23 01:43 11/08/23 02:30 Temperature 99.0 F 99.5 F Pulse Rate 94 H Respiratory Rate 16 Blood Pressure 132/78 Pulse Oximetry 98 Oxygen Delivery Method Oxygen Flow Rate 0 Oxygen Delivery Method Room Air Oxygen Flow Rate 0 Const Other: in no distress Cardio Other: RRR Neuro Other: w/o deficits Extrem Other: w/o swelling Objective Labs 11/08/23 05:21 11/08/23 05:21 Labs: Laboratory Results - last 24 hr 11/07/23 11/07/23 11/07/23 17:28 22:13 22:14 WBC 14.2 H RBC 2.57 L Hgb 7.1 L Hct 21.1 L MCV 82.0 MCH 27.4 MCHC 33.4 RDW 18.5 H Plt Count 572 H Neut % (Auto) 84.4 H Lymph % (Auto) 6.9 L [place] % (Auto) 6.5 Eos % (Auto) 1.0 L Baso % (Auto) 1.2 Neut # (Auto) 61010 H Lymph # (Auto) 1000 L [place] # (Auto) 900 Eos # (Auto) 100 Baso # (Auto) 200 H PT 12.4 INR 1.1 APTT 33 Sodium 128 L Potassium 5.1 D Chloride 98 Carbon Dioxide 23 BUN 51 H Creatinine 3.07 H Estimated GFR 18 L BUN/Creatinine Ratio 16.6 Glucose 120 H Lactate 0.7 Calcium 8.9 Iron 34 L Ferritin 174 Total Bilirubin 0.5 AST 22 ALT 16 Alkaline Phosphatase 114 Lactate Dehydrogenase 167 Total Creatine Kinase 33 Troponin I < 0.012 NT-Pro-B Natriuret Pep 2900 H Total Protein 7.5 Albumin 3.4 L Globulin 4.1 Albumin/Globulin Ratio 0.8 L Urine Color Urine Appearance Urine pH Ur Specific [place] Urine Protein Urine Glucose (UA) Urine Ketones Urine Occult Blood Urine Nitrate Urine Bilirubin Urine Urobilinogen Ur Leukocyte Esterase Urine RBC Urine WBC Ur Squamous Epith Cells Urine Bacteria Ur Culture Indicated? Vol Urine Centrifuged SARS-CoV-2 (PCR) Blood Type A Positive Antibody Screen Negative Crossmatch See Detail 11/07/23 11/07/23 11/07/23 22:21 22:27 22:52 WBC RBC Hgb 7.2 L Hct 21.1 L MCV MCH MCHC RDW Plt Count Neut % (Auto) Lymph % (Auto) [place] % (Auto) Eos % (Auto) Baso % (Auto) Neut # (Auto) Lymph # (Auto) [place] # (Auto) Eos # (Auto) Baso # (Auto) PT INR APTT Sodium Potassium Chloride Carbon Dioxide BUN Creatinine Estimated GFR BUN/Creatinine Ratio Glucose Lactate Calcium Iron Ferritin Total Bilirubin AST ALT Alkaline Phosphatase Lactate Dehydrogenase Total Creatine Kinase Troponin I NT-Pro-B Natriuret Pep Total Protein Albumin Globulin Albumin/Globulin Ratio Urine Color Yellow Urine Appearance Clear Urine pH 7.5 Ur Specific [place] 1.020 Urine Protein 3+ H Urine Glucose (UA) Negative Urine Ketones Negative Urine Occult Blood 3+ H Urine Nitrate Negative Urine Bilirubin Negative Urine Urobilinogen 0.2 Ur Leukocyte Esterase Negative Urine RBC 10-30/hpf H Urine WBC None seen Ur Squamous Epith Cells 0-1 /hpf Urine Bacteria None seen Ur Culture Indicated? Cult not indicated Vol Urine Centrifuged 10ml (spun) SARS-CoV-2 (PCR) Negative Blood Type Antibody Screen Crossmatch 11/08/23 05:21 WBC 15.1 H RBC 2.67 L Hgb 7.5 L Hct 21.8 L MCV 81.7 MCH 28.1 MCHC 34.4 RDW 17.5 H Plt Count 487 H Neut % (Auto) 84.0 H Lymph % (Auto) 8.9 L [place] % (Auto) 6.7 Eos % (Auto) 0.4 L Baso % (Auto) 0.0 Neut # (Auto) 80954 H Lymph # (Auto) 1400 [place] # (Auto) 1000 H Eos # (Auto) 100 Baso # (Auto) 0 PT INR APTT Sodium 128 L Potassium 4.8 Chloride 100 Carbon Dioxide 22 BUN 48 H Creatinine 3.12 H Estimated GFR 17 L BUN/Creatinine Ratio 15.4 Glucose 109 H Lactate Calcium 8.3 L Iron Ferritin Total Bilirubin AST ALT Alkaline Phosphatase Lactate Dehydrogenase Total Creatine Kinase Troponin I NT-Pro-B Natriuret Pep 2740 H Total Protein Albumin Globulin Albumin/Globulin Ratio Urine Color Urine Appearance Urine pH Ur Specific [place] Urine Protein Urine Glucose (UA) Urine Ketones Urine Occult Blood Urine Nitrate Urine Bilirubin Urine Urobilinogen Ur Leukocyte Esterase Urine RBC Urine WBC Ur Squamous Epith Cells Urine Bacteria Ur Culture Indicated? Vol Urine Centrifuged SARS-CoV-2 (PCR) Blood Type Antibody Screen Crossmatch Assessment & Plan Assessment and plan (1) Pneumonia: Status: Acute (2) Acute kidney failure: Status: Acute (3) Anemia: Status: Acute Assessment & Plan narrative: RYAN - IVFs - monitored BMP - discussed with nephrology - needs follow up Anemia - PRBC x 1 in ED - monitored counts - follow up with hematology/oncology PNA / mass-like - abx - repeat imaging needed DVT prophylaxis - SCDs
--- NOTE | 2023-11-08 07:29 | P.HP_ITS ---
History of Present Illness History of Present Illness Date Patient Seen: 11/08/23 Chief complaint: states low hemoglobin level/Dr ref Narrative: From night doctor: From the ED 53-year-old female with history of anemia presents as a referral from her doctor's office for abnormal laboratory work. Patient has been followed by her primary care physician for the last month for worsening anemia. In July 2023 patient's hemoglobin was 10.7 and creatinine 0.54, however in October hemoglobin was found to be 7.0. Patient was started on B12 and iron supplements. On repeat labs patient's hemoglobin was reported to be 6.5, potassium 6.4, and with creatinine of 3.0 and patient was referred to the emergency department. Patient reports fatigue and mild shortness of breath. Admitted for IVFs , transfused one unit of PRBCs. Recent info: She has had dyspnea with exertion and generalized fatigue for several weeks. She had a hemoglobin with her primary care doctor in September that was 7. She was found to be more anemic yesterday and was given 1 unit of blood. She denies any rectal bleeding and had a negative guaiac yesterday. She also denies any menstruation. She has a relatively typical diet. She has never had colonoscopy but has currently being referred for a colonoscopy. Her mother had colon cancer at age 72. She denies any pulmonary symptoms including fevers chills, cough, or rhinorrhea. An infiltrate was noted on chest x-ray and antibiotics were started. 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 Family History Mother Cancer Brother Heart problem Social History household members: none Smoking Status: Never smoker alcohol intake: never Meds Home Medications and Allergies Home Medications Medication Instructions Recorded Confirmed Type ferrous sulfate 325 mg (65 mg 325 mg PO DAILY 07/29/23 11/05/23 History iron) tablet multivitamin 1 tab PO DAILY 07/29/23 11/05/23 History amoxicillin 875 mg-potassium 1 tab PO BID 11/08/23 11/08/23 History clavulanate 125 mg tablet Allergies Allergy/AdvReac Type Severity Reaction Status Date / Time amoxicillin Allergy Intermediate Rash Verified 11/07/23 21:01 Review of Systems Review of Systems Narrative: All else reviewed and otherwise unremarkable except as noted in the history and physical. Exam Vital Signs (past 8 hours): - 11/07/23 23:30 11/07/23 23:30 11/08/23 00:00 Temperature Pulse Rate 97 H Respiratory Rate 17 Blood Pressure 141/79 H 140/80 Pulse Oximetry 97 Oxygen Delivery Method Room Air Oxygen Flow Rate 11/08/23 00:00 11/08/23 00:30 11/08/23 00:30 Temperature Pulse Rate 95 H 87 Respiratory Rate 18 18 Blood Pressure 133/78 Pulse Oximetry 97 96 Oxygen Delivery Method Room Air Room Air Oxygen Flow Rate 11/08/23 01:00 11/08/23 01:00 11/08/23 01:30 Temperature Pulse Rate 90 Respiratory Rate 17 Blood Pressure 140/72 142/80 H Pulse Oximetry 96 Oxygen Delivery Method Room Air Oxygen Flow Rate 11/08/23 01:30 11/08/23 01:43 11/08/23 02:30 Temperature 99.0 F 99.5 F Pulse Rate 95 H 94 H Respiratory Rate 19 16 Blood Pressure 132/78 Pulse Oximetry 97 98 Oxygen Delivery Method Room Air Oxygen Flow Rate 0 Oxygen Delivery Method Room Air Oxygen Flow Rate 0 Narrative Exam Narrative: NAD, alert and oriented, fluent speech, calm. Pale skin. Flat affect. Normocephalic skull, EOMI, anicteric sclera, symmetric pupils. Oropharynx unremarkable, no droop. Neck supple, midline trachea, no adenopathy. Lungs clear, normal rate and effort. Heart regular, no murmur gallop or rub. Abdomen is soft, non distended and non tender. Extremities are free of edema. Skin is free of rash or lesions. Joints are not swollen or deformed. Judgment appears to be normal. Objective Imaging CT scan - chest: Radiologist's impression: Irregular infiltrate seen involving the right middle lobe and the right lower lobe. No hematomas are seen in this patient with a given history of rapidly progressive anemia. Labs 11/08/23 05:21 11/08/23 05:21 Labs: Laboratory Results - last 24 hr 11/07/23 11/07/23 11/07/23 17:28 22:13 22:14 WBC 14.2 H RBC 2.57 L Hgb 7.1 L Hct 21.1 L MCV 82.0 MCH 27.4 MCHC 33.4 RDW 18.5 H Plt Count 572 H Neut % (Auto) 84.4 H Lymph % (Auto) 6.9 L [place] % (Auto) 6.5 Eos % (Auto) 1.0 L Baso % (Auto) 1.2 Neut # (Auto) 67902 H Lymph # (Auto) 1000 L [place] # (Auto) 900 Eos # (Auto) 100 Baso # (Auto) 200 H PT 12.4 INR 1.1 APTT 33 Sodium 128 L Potassium 5.1 D Chloride 98 Carbon Dioxide 23 BUN 51 H Creatinine 3.07 H Estimated GFR 18 L BUN/Creatinine Ratio 16.6 Glucose 120 H Lactate 0.7 Calcium 8.9 Iron 34 L Ferritin 174 Total Bilirubin 0.5 AST 22 ALT 16 Alkaline Phosphatase 114 Lactate Dehydrogenase 167 Total Creatine Kinase 33 Troponin I < 0.012 NT-Pro-B Natriuret Pep 2900 H Total Protein 7.5 Albumin 3.4 L Globulin 4.1 Albumin/Globulin Ratio 0.8 L Urine Color Urine Appearance Urine pH Ur Specific [place] Urine Protein Urine Glucose (UA) Urine Ketones Urine Occult Blood Urine Nitrate Urine Bilirubin Urine Urobilinogen Ur Leukocyte Esterase Urine RBC Urine WBC Ur Squamous Epith Cells Urine Bacteria Ur Culture Indicated? Vol Urine Centrifuged SARS-CoV-2 (PCR) Blood Type A Positive Antibody Screen Negative Crossmatch See Detail 11/07/23 11/07/23 11/07/23 22:21 22:27 22:52 WBC RBC Hgb 7.2 L Hct 21.1 L MCV MCH MCHC RDW Plt Count Neut % (Auto) Lymph % (Auto) [place] % (Auto) Eos % (Auto) Baso % (Auto) Neut # (Auto) Lymph # (Auto) [place] # (Auto) Eos # (Auto) Baso # (Auto) PT INR APTT Sodium Potassium Chloride Carbon Dioxide BUN Creatinine Estimated GFR BUN/Creatinine Ratio Glucose Lactate Calcium Iron Ferritin Total Bilirubin AST ALT Alkaline Phosphatase Lactate Dehydrogenase Total Creatine Kinase Troponin I NT-Pro-B Natriuret Pep Total Protein Albumin Globulin Albumin/Globulin Ratio Urine Color Yellow Urine Appearance Clear Urine pH 7.5 Ur Specific [place] 1.020 Urine Protein 3+ H Urine Glucose (UA) Negative Urine Ketones Negative Urine Occult Blood 3+ H Urine Nitrate Negative Urine Bilirubin Negative Urine Urobilinogen 0.2 Ur Leukocyte Esterase Negative Urine RBC 10-30/hpf H Urine WBC None seen Ur Squamous Epith Cells 0-1 /hpf Urine Bacteria None seen Ur Culture Indicated? Cult not indicated Vol Urine Centrifuged 10ml (spun) SARS-CoV-2 (PCR) Negative Blood Type Antibody Screen Crossmatch 11/08/23 05:21 WBC 15.1 H RBC 2.67 L Hgb 7.5 L Hct 21.8 L MCV 81.7 MCH 28.1 MCHC 34.4 RDW 17.5 H Plt Count 487 H Neut % (Auto) 84.0 H Lymph % (Auto) 8.9 L [place] % (Auto) 6.7 Eos % (Auto) 0.4 L Baso % (Auto) 0.0 Neut # (Auto) 86422 H Lymph # (Auto) 1400 [place] # (Auto) 1000 H Eos # (Auto) 100 Baso # (Auto) 0 PT INR APTT Sodium 128 L Potassium 4.8 Chloride 100 Carbon Dioxide 22 BUN 48 H Creatinine 3.12 H Estimated GFR 17 L BUN/Creatinine Ratio 15.4 Glucose 109 H Lactate Calcium 8.3 L Iron Ferritin Total Bilirubin AST ALT Alkaline Phosphatase Lactate Dehydrogenase Total Creatine Kinase Troponin I NT-Pro-B Natriuret Pep 2740 H Total Protein Albumin Globulin Albumin/Globulin Ratio Urine Color Urine Appearance Urine pH Ur Specific [place] Urine Protein Urine Glucose (UA) Urine Ketones Urine Occult Blood Urine Nitrate Urine Bilirubin Urine Urobilinogen Ur Leukocyte Esterase Urine RBC Urine WBC Ur Squamous Epith Cells Urine Bacteria Ur Culture Indicated? Vol Urine Centrifuged SARS-CoV-2 (PCR) Blood Type Antibody Screen Crossmatch Assessment & Plan Assessment & Plan narrative: 1. RYAN, present on admission and active. 2. Anemia, present on admission and active. 3. Possible pneumonia, present on admission and active. 4. Possible lung mass (irregular infiltrate), present on admission and active. 5. Volume depletion, present on admission and active. PLAN: -Blood transfusion given. -anemia tests. -IVF and monitor renal function (repeat BMP 15:00 today). -continue antibiotics. Follow blood cultures. -Will discuss with nephrology if renal function fails to improve with fluids over the next 12-24 hours. Time Spent With Patient Time with patient: 30 to 49 minutes with 50% spent counseling/coordinating care Quality MIPS - Admit The patient?s Advance Care plan is not present because I confirmed today that the patient does not wish or was not able to name a surrogate decision maker or provide an Advance Care Plan.: Yes MIPS - Meds 'Current medications' to include all prescriptions, [id number] products, herbals, cannabis/cannabidiol products, and vitamin/mineral/dietary (nutritional) supplements. I have utilized all available resources to obtain, update, or review the patient?s current medications. [If Yes, STOP here]: Yes
--- NOTE | 2023-11-08 10:31 | PC.NURSE ---
Pt A&O, offers no overt c/o presently appears restful in bed.
[2023-11-08 14:16] LABS: Reticulocyte Count, Percent 1.8 % (1.1-2.6)
[2023-11-08 14:27] LABS: BUN Creatinine Ratio 16.7 (6-22); Blood Urea Nitrogen 51 mg/dL (7-17); Calcium 7.9 mg/dL (8.4-10.2); Carbon Dioxide 20 mmol/L (22-32); Chloride 101 mmol/L (98-107); Estimated Glomerular Filt Rate 18 mL/min (>60); Glucose 132 mg/dL (70-100); HEMOLYSIS < 15 (0-50); Potassium 5.1 mmol/L (3.4-5.1); Sodium 127 mmol/L (137-145)
[2023-11-08 14:30] LABS: HEMOLYSIS < 15 (0-50); Iron 27 ug/dL (37-170)
[2023-11-08 14:41] LABS: Percent Iron Saturation 16 % (15-50); Total Iron Binding Capacity 174 ug/dL (265-497); Transferrin 140 mg/dL (206-381)
--- NOTE | 2023-11-08 15:18 | CM.DANOTE ---
Initial DCP Assessment Visit Note Reviewed EMR and team rounds for status updates. Met with pt at bedside to introduce self and role, pt was found to be alert/oriented, able to discuss concerns/needs/preferences for d/c. Pt resides independently in her own home here in [place]. She drove herself to the ED, and if medically stable, can drive herself home once cleared for d/c. Payor: [facility] PCP: Dr. Imelda Ladd Pt is a 53 year-old F who was advised yesterday evening by her PCP to go to the ED due to abnormal labs and worsening anemia over the last month. She was found to have very low hemoglobin, hyponatremia, low creatinine, and low potassium. She was also found to have a possible R-sided pneumonia on chest CT in the ED. She was started on IV fluids/ABO's, plan to monitor renal function, anemia. Dr. Ludwig/Surgical Appliance Fitter at [facility] was consulted re: whether or not to transfer her out, he felt she could be treated here, then OP f/u next week in his office for potential multiple myeloma or other hematological process. DCP will continue to follow and assist with any evolving d/c needs. At this time, no anticipated home d/c needs have been identified. Discharge Planning/Care Management CM Discharge Assessment Start: 11/08/23 15:16 Freq: Status: Active Protocol: Document 11/08/23 15:16 DPL (Rec: 11/08/23 15:18 DPL [id number]) Discharge Planning Assessment Assigned Director Of Marketing Analytics JUNITO Ashley Advance Directives? No History Provided By Patient,Medical Record Has Patient been admitted in last 30 No days? Prior Living Arrangements House Household Members none Type of transporation used prior to Drives own vehicle admit Independent with ADL's Yes Is patient alert and oriented? Yes Comment N/A Caregiver for Another No Comment Pt will d/c with a OP Hematology consult f/u with Dr Carlos Ludwig at [facility]. Barriers to Discharge No Discharge Plan Home Transportation Arrangement Pt drove herself to the ED, she will plan to drive home herself unless there are medical reasons not to. She also has local family that can assist, if needed. Referrals Initiated None needed Whiteboard Updated in Patient Room with Yes name and ext. # of Director Of Marketing Analytics Review Status In Process Please Provide Date Initial DC 11/08/23 Assessment Was Performed
[2023-11-08 15:33] LABS: Folate 4.6 ng/mL (2.76-20.0); Vitamin B12 500 pg/mL (239-931)
--- NOTE | 2023-11-08 17:07 | DI.US.S_ITS ---
PROCEDURE: US RENAL COMPLETE INDICATIONS: RYAN TECHNIQUE: Real-time scanning was performed of the kidneys and bladder, with image documentation. COMPARISON: None. FINDINGS: Kidneys: Kidneys are normal in size. Right kidney measures 11.1 cm long; left kidney measures 11.5 cm long. Right renal cortical thickness is 1.5 cm; left renal cortical thickness is 1.5 cm. Renal cortical echotexture is normal. No hydronephrosis or nephrolithiasis. No suspicious solid mass lesions. Bladder: Nondistended. Miscellaneous: No free pelvic fluid. IMPRESSION: Unremarkable ultrasound of the kidneys Approved by: Tuan Ellison M.D. on 11/09/2023 at 11:14
[2023-11-08] MEDS: cefTRIAXone 1,000 MG in SODIUM CHLORIDE 0.9% 100 ML 200 MG IV (20:57)
[2023-11-08] MEDS: AZITHROMYCIN 500 MG in DEXTROSE 5% IN WATER 250 ML 250 MG IV (20:57)
[2023-11-09 05:00] VITALS: BP 119/76; PULSE 95; RESP 97; TEMP 36.7; O2SAT 97
[2023-11-09 05:12] LABS: Add Manual Diff / Slide Review NO; Basophils Absolute Auto 100 /uL (0-100); Basophils Percent Auto 0.9 % (0-2); Eosinophils Absolute Auto 700 /uL (0-450); Eosinophils Percent Auto 8.2 % (2-4); Hematocrit 21.4 % (36-46); Hemoglobin 7.2 g/dL (12.0-16.0); Lymphocytes Absolute Auto 1200 /uL (1100-4500); Lymphocytes Percent Auto 12.8 % (25-40); Mean Corpuscular HGB Conc 33.7 % (30-36); Mean Corpuscular Hemoglobin 27.7 PG (26-34); Mean Corpuscular Volume 82.2 fL (80-100); Monocytes Absolute Auto 600 /uL (0-900); Monocytes Percent Auto 6.4 % (3-14); Neutrophils Absolute Auto 6500 /uL (1500-7000); Neutrophils Percent Auto 71.7 % (50-75); Platelet Count 488 X10^3/uL (150-400); Red Cell Distribution Width 17.9 % (11.6-14.8); White Blood Cell Count 9.1 X10^3/uL (4.5-11.0)
[2023-11-09 05:28] LABS: BUN Creatinine Ratio 17.9 (6-22); Blood Urea Nitrogen 57 mg/dL (7-17); Carbon Dioxide 21 mmol/L (22-32); Chloride 105 mmol/L (98-107); Estimated Glomerular Filt Rate 17 mL/min (>60); Glucose 95 mg/dL (70-100); HEMOLYSIS < 15 (0-50); Potassium 5.3 mmol/L (3.4-5.1); Sodium 130 mmol/L (137-145)
--- NOTE | 2023-11-09 07:15 | PM.PN.1 ---
Subjective Subjective Interval history: She feels generally good. Her creatinine remained stable at about 3.1 after IV fluids with a potassium that is slightly elevated at 5.3. She denies flank pain, family history of kidney disease, or rectal bleeding. Her creatinine was normal in July of 2023. She was 1st found to be anemic Exam Vital Signs (past 8 hours): - 11/09/23 05:00 Temperature 98.1 F Pulse Rate 95 H Respiratory Rate 97 H Blood Pressure 119/76 Pulse Oximetry 97 Oxygen Flow Rate 0 Oxygen Delivery Method Room Air Oxygen Flow Rate 0 Const Other: NAD, alert and oriented. Fluent speech. Lungs are clear, normal rate and effort. Heart is regular, no murmur gallop or rub. Abdomen is soft, non distended. Extremities are free of edema. Objective Imaging Renal US: Radiologist's impression: Kidneys: Kidneys are normal in size. Right kidney measures 11.1 cm long; left kidney measures 11.5 cm long. Right renal cortical thickness is 1.5 cm; left renal cortical thickness is 1.5 cm. Renal cortical echotexture is normal. No hydronephrosis or nephrolithiasis. No suspicious solid mass lesions. Bladder: Nondistended. Miscellaneous: No free pelvic fluid. IMPRESSION: Unremarkable ultrasound of the kidneys Labs 11/09/23 04:29 11/09/23 04:29 Labs: Laboratory Results - last 24 hr 11/08/23 11/09/23 14:06 04:29 WBC 9.1 RBC 2.60 L Hgb 7.2 L Hct 21.4 L MCV 82.2 MCH 27.7 MCHC 33.7 RDW 17.9 H Plt Count 488 H Neut % (Auto) 71.7 Lymph % (Auto) 12.8 L [place] % (Auto) 6.4 Eos % (Auto) 8.2 H Baso % (Auto) 0.9 Neut # (Auto) 6500 Lymph # (Auto) 1200 [place] # (Auto) 600 Eos # (Auto) 700 H Baso # (Auto) 100 Percent Retic 1.8 Sodium 127 L 130 L Potassium 5.1 5.3 H Chloride 101 105 Carbon Dioxide 20 L 21 L BUN 51 H 57 H Creatinine 3.06 H 3.19 H Estimated GFR 18 L 17 L BUN/Creatinine Ratio 16.7 17.9 Glucose 132 H 95 Calcium 7.9 L 8.0 L Iron 27 L TIBC 174 L % Saturation 16 Transferrin 140 L Vitamin B12 500 Folate 4.6 [facility] Medical History Near-sightedness Family History Mother Cancer Brother Heart problem Social History household members: none Smoking Status: Never smoker alcohol intake: never Assessment & Plan Assessment & Plan narrative: 1. RYAN, present on admission and active. Cr normal in Jul, 2023. 2. Anemia, present on admission and active. 1st seen 10/16. Mildly low Iron. 3. Possible pneumonia, present on admission and active. No cough, fevers, or dyspnea. 4. Possible lung mass (irregular infiltrate), present on admission and active. PLAN: -Blood transfusion given. -anemia tests. H/H 7.2/21, Na 130, K 5.3, CO2 21, Cr 3.19, BUN 75, GFR 17, Ca 8.0, Fe 27L, TIBC 174L, %Sat 16, L, transferrin 140L, B12 500, folate 4.6 , % retic 1.8, Urine 3+ protein and blood, 1.020, 7.5 pH, Urine total protein 42.6 mg/dL -IVF and monitor renal function (repeat BMP 16:00 today). -continue antibiotics. Follow blood cultures. -renal US (11/08) Normal -adding a spot Ur Prot/Cr ration, 3+ protein on dip, and low serum albumin. -discuss briefly with Nephrology this morning. At this point there were no further recommendations. I am awaiting a urine protein creatinine ratio. The patient appears to have a significant amount of proteinuria. This also appears to be an acute process with an elevated sed rate of about 100. At this point we will send out multiple studies including JOES, dsDNA, hepatitis-B and C, SPEP, and complement levels. -we will monitor her potassium for an additional day as well as creatinine. The java developer at [facility], indicated that there was no possibility of outpatient referral was [facility] due to staffing. I recommended that we contact the on-call java developer on Friday, Dr. Lopez to further discuss the case. I am concerned that she requires acute nephrology evaluation and even possibly an urgent kidney biopsy. She may require a transfer. -she may require medical treatment for hyperkalemia if this increases over her current 5.3 level.
[2023-11-09 08:00] VITALS: BP 110/68; PULSE 92; RESP 19; TEMP 36.9; O2SAT 98
[2023-11-09 12:00] VITALS: BP 113/74; PULSE 84; RESP 16; TEMP 36.8; O2SAT 100
[2023-11-09 15:20] LABS: Creatinine Urine Random 35.2 mg/dL; Protein (Total) Urine Random 111 mg/dL (0-12); Protein Creatinine Ratio Urine 3.15 GRAM/24H
[2023-11-09 16:00] VITALS: BP 127/71; PULSE 83; RESP 17; TEMP 37.2; O2SAT 100
[2023-11-09 16:41] LABS: Hemoglobin A1C% w Est Avg Glu 5.1 % (4.0-6.0)
[2023-11-09 17:01] LABS: BUN Creatinine Ratio 17.8 (6-22); Blood Urea Nitrogen 60 mg/dL (7-17); Carbon Dioxide 22 mmol/L (22-32); Chloride 106 mmol/L (98-107); Estimated Glomerular Filt Rate 16 mL/min (>60); Glucose 97 mg/dL (70-100); HEMOLYSIS < 15 (0-50); Sodium 133 mmol/L (137-145)
[2023-11-09 17:02] LABS: Potassium 5.6 mmol/L (3.4-5.1)
[2023-11-09 20:00] VITALS: BP 129/76; PULSE 97; RESP 16; TEMP 37.2; O2SAT 100
[2023-11-09] MEDS: AZITHROMYCIN 500 MG in DEXTROSE 5% IN WATER 250 ML 250 MG IV (20:19)
[2023-11-09] MEDS: cefTRIAXone 1,000 MG in SODIUM CHLORIDE 0.9% 100 ML 200 MG IV (22:21)
[2023-11-10 00:33] VITALS: BP 132/75; PULSE 93; RESP 16; TEMP 37.1; O2SAT 100
[2023-11-10 04:00] VITALS: BP 124/75; PULSE 80; RESP 16; TEMP 36.8; O2SAT 100
[2023-11-10] MEDS: SODIUM CHLORIDE 0.9% 1,000 ML 100 ML IV ×2 (04:20→14:14)
[2023-11-10 05:37] LABS: Add Manual Diff / Slide Review NO; Basophils Absolute Auto 100 /uL (0-100); Basophils Percent Auto 0.9 % (0-2); Eosinophils Absolute Auto 900 /uL (0-450); Eosinophils Percent Auto 9.8 % (2-4); Hematocrit 21.1 % (36-46); Hemoglobin 7.1 g/dL (12.0-16.0); Lymphocytes Absolute Auto 1300 /uL (1100-4500); Lymphocytes Percent Auto 15.4 % (25-40); Mean Corpuscular HGB Conc 33.6 % (30-36); Mean Corpuscular Hemoglobin 28.1 PG (26-34); Mean Corpuscular Volume 83.5 fL (80-100); Monocytes Absolute Auto 500 /uL (0-900); Monocytes Percent Auto 5.3 % (3-14); Neutrophils Absolute Auto 6000 /uL (1500-7000); Neutrophils Percent Auto 68.6 % (50-75); Platelet Count 476 X10^3/uL (150-400); Red Blood Cell Count 2.52 X10^6/uL (4.0-5.2); Red Cell Distribution Width 17.7 % (11.6-14.8); White Blood Cell Count 8.7 X10^3/uL (4.5-11.0)
[2023-11-10 05:42] LABS: BUN Creatinine Ratio 21.7 (6-22); Blood Urea Nitrogen 68 mg/dL (7-17); Carbon Dioxide 18 mmol/L (22-32); Chloride 108 mmol/L (98-107); Estimated Glomerular Filt Rate 17 mL/min (>60); Glucose 90 mg/dL (70-100); HEMOLYSIS < 15 (0-50); Potassium 5.3 mmol/L (3.4-5.1); Sodium 132 mmol/L (137-145)
[2023-11-10 08:00] VITALS: BP 120/71; PULSE 61; RESP 16; TEMP 36.4; O2SAT 100
[2023-11-10] MEDS: SODIUM ZIRCONIUM CYCLOSILICATE 10 GM POWD.PACK PO ×2 (10:33→15:51)
[2023-11-10 15:36] LABS: HIV 1 & 2 Ab/Ag 4th Gen Combo NEGATIVE (NEGATIVE)
--- NOTE | 2023-11-10 15:45 | P.DS_ITS ---
History of Present Illness History of Present Illness Date Patient Seen: 11/08/23 Chief complaint: states low hemoglobin level/Dr ref Narrative: From the ED 53-year-old female with history of anemia presents as a referral from her doctor's office for abnormal laboratory work. Patient has been followed by her primary care physician for the last month for worsening anemia. In July 2023 patient's hemoglobin was 10.7 and creatinine 0.54, however in October hemoglobin was found to be 7.0. Patient was started on B12 and iron supplements. On repeat labs patient's hemoglobin was reported to be 6.5, potassium 6.4, and with creatinine of 3.0 and patient was referred to the emergency department. Patient reports fatigue and mild shortness of breath. Admitted for IVFs , transfused one unit of PRBCs. Recent info: She has had dyspnea with exertion and generalized fatigue for several weeks. She had a hemoglobin with her primary care doctor in September that was 7. She was found to be more anemic yesterday and was given 1 unit of blood. She denies any rectal bleeding and had a negative guaiac yesterday. She also denies any menstruation. She has a relatively typical diet. She has never had colonoscopy but has currently being referred for a colonoscopy. Her mother had colon cancer at age 72. She denies any pulmonary symptoms including fevers chills, cough, or rhinorrhea. An infiltrate was noted on chest x-ray and antibiotics were started. Discharge Providers Provider Date of admission: 11/08/23 01:35 Discharge Date: 11/10/23 Primary care physician: Imelda Ladd MD Discharge provider: Telly Aguilar DO Summary Hospital Course Discharge Diagnosis: 1. RYAN, present on admission and active. Cr normal in Jul, 2023. 2. Anemia, present on admission and active. 1st seen 10/16. Mildly low iron. 3. Possible pneumonia, present on admission and active. No cough, fevers, or dyspnea. 4. Possible lung mass (irregular infiltrate), present on admission and active. PLAN: -s/p 1 unit PRBC -anemia tests. H/H 7.2/21, Na 130, K 5.3, CO2 21, Cr 3.19, BUN 75, GFR 17, Ca 8.0, Fe 27L, TIBC 174L, %Sat 16, L, transferrin 140L, B12 500, folate 4.6 , % retic 1.8, Urine 3+ protein and blood, 1.020, 7.5 pH, Urine total protein 42.6 mg/dL. -continue antibiotics. Follow blood cultures. -renal US (11/08) Normal -Ur/Cr ratio shows 3.1g protein, 3+ protein on dip, and low serum albumin. -elevated sed rate of about 100. JOSE, dsDNA, hepatitis-B and C, SPEP, ANCA and complement levels pending. HIV negative. -receiving lokelma, K improved from 6.4 to 5.3 Hospital Course: Sent to the ED after routine lab work showed potassium of 6.4 and a creatinine of 3. Previous creatinine 0.54 in July 2023. Also had possible pneumonia with CT chest showing irregular infiltrates of R middle and lower lobes. Placed on IV abx. UA showed 3+ porteinuria and 3+ blood with 10-30 RBC's. Renal US normal. Received lokelma and K improved. Spoke with nephro who recommended workup for GN so labs sent as above. Cr did not improve and stayed at 3.1 so spoke with nephro again who recommended transfer for renal biopsy. Accepted to [facility] on 11/09. Exam Vital Signs (past 8 hours): - 11/10/23 08:00 Temperature 97.5 F L Pulse Rate 61 Respiratory Rate 16 Blood Pressure 120/71 Pulse Oximetry 100 Oxygen Flow Rate 0 Oxygen Delivery Method Room Air Oxygen Flow Rate 0 Const Other: NAD, alert and oriented. Fluent speech. Lungs are clear, normal rate and effort. Heart is regular, no murmur gallop or rub. Abdomen is soft, non distended. Extremities are free of edema. Objective Labs 11/10/23 04:35 11/10/23 04:35 Labs: Laboratory Results - last 24 hr 11/09/23 11/10/23 16:23 04:35 WBC 8.7 RBC 2.52 L Hgb 7.1 L Hct 21.1 L MCV 83.5 MCH 28.1 MCHC 33.6 RDW 17.7 H Plt Count 476 H Neut % (Auto) 68.6 Lymph % (Auto) 15.4 L [place] % (Auto) 5.3 Eos % (Auto) 9.8 H Baso % (Auto) 0.9 Neut # (Auto) 6000 Lymph # (Auto) 1300 [place] # (Auto) 500 Eos # (Auto) 900 H Baso # (Auto) 100 Sodium 133 L 132 L Potassium 5.6 H 5.3 H Chloride 106 108 H Carbon Dioxide 22 18 L BUN 60 H 68 H Creatinine 3.38 H 3.14 H Estimated GFR 16 L 17 L BUN/Creatinine Ratio 17.8 21.7 Glucose 97 90 Hemoglobin A1c 5.1 Calcium 8.0 L 8.0 L HIV 1&2 Ab/P24 Ag 4thGn Negative [facility] Medical History 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
[2023-11-10 16:00] VITALS: BP 133/78; PULSE 80; RESP 16; TEMP 36.6; O2SAT 98
[2023-11-10 16:32] LABS: Hepatitis B Surface Antigen NEGATIVE s/c (NEGATIVE)
[2023-11-10 16:46] LABS: Hep C Virus Ab w/Reflex Quant NEGATIVE s/c (NEGATIVE)
[2023-11-11 03:03] LABS: Hepatitis B Core Antibody Negative (Negative)
[2023-11-11 03:36] LABS: Complement C3 103 mg/dL (82-167)
[2023-11-12 13:18] LABS: Albumin 2.1 g/dL (2.9-4.4); Alpha-1-Globulin 0.4 g/dL (0.0-0.4); Alpha-2-Globulin 0.9 g/dL (0.4-1.0); Gamma Globulin 1.3 g/dL (0.4-1.8); Globulin Total 3.3 g/dL (2.2-3.9); Protein, Total 5.4 g/dL (6.0-8.5)
[2023-11-12 16:49] LABS: DNA (DS) Antibody <1 IU/mL (0-9)
[2023-11-13 16:51] LABS: ANA Screen, IFA Negative (.)
[2023-11-14 12:16] LABS: Antimyeloperoxidase Antibodies <0.2 units (0.0-0.9); Antiproteinase 3 Antibodies >8.0 units (0.0-0.9); Cytoplasmic C-ANCA 1:40 titer (Neg:<1:20); Perinuclear P-ANCA <1:20 titer (Neg:<1:20)
== END 2023-11-10 16:46 | disposition short-term general hospital (02) | DRG 663 ==
LOC: ED 11-08 01:12 → AC 11-08 01:36
PROVIDERS: Emergency Medicine; Hospitalist; Student in an Organized Health Care Education/Training Program; Admitting Provider Internal Medicine; Emergency Provider Emergency Medicine; PCP Family Medicine; Referring Provider Emergency Medicine; Visit Provider Internal Medicine
DX: D64.9 Anemia, unspecified (principal); J18.9 Pneumonia, unspecified organism; N17.9 Acute kidney failure, unspecified; D75.839 Thrombocytosis, unspecified; R53.83 Other fatigue; R70.0 Elevated erythrocyte sedimentation rate; R60.0 Localized edema; R06.02 Shortness of breath; R06.09 Other forms of dyspnea; E86.9 Volume depletion, unspecified; R91.8 Other nonspecific abnormal finding of lung field
CPT/HCPCS: 36415; 36430; 71045; 71250; 76770; 80048; 80053; 81001; 82550; 82570; 82607; 82728; 82746; 83036; 83090; 83540; 83550; 83605; 83615; 83880; 84155; 84156; 84165; 84484; 85014; 85018; 85025; 85045; 85610; 85651; 85730; 86038; 86160; 86225; 86256; 86704; 86803; 86850; 86900; 86901; 87340; 87389; 87635; 93005; 96365; 96367; 96375; 99285; P9016; J0696; J2405

== ENCOUNTER → 2023-11-29 12:11 | Outpatient (CLI) | payer OTHER, MEDICAID, SELFPAY ==
[2023-11-08 02:06] VITALS: BMI 19.3
[2023-11-29 12:56] LABS: Add Manual Diff / Slide Review NO; Basophils Absolute Auto 0 /uL (0-100); Eosinophils Absolute Auto 0 /uL (0-450); Hematocrit 30.2 % (36-46); Lymphocytes Absolute Auto 400 /uL (1100-4500); Lymphocytes Percent Auto 3.4 % (25-40); Mean Corpuscular HGB Conc 33.2 % (30-36); Mean Corpuscular Hemoglobin 28.2 PG (26-34); Mean Corpuscular Volume 84.9 fL (80-100); Monocytes Absolute Auto 100 /uL (0-900); Monocytes Percent Auto 0.5 % (3-14); Neutrophils Absolute Auto 10800 /uL (1500-7000); Neutrophils Percent Auto 96.1 % (50-75); Platelet Count 262 X10^3/uL (150-400); Red Blood Cell Count 3.56 X10^6/uL (4.0-5.2); Red Cell Distribution Width 18.3 % (11.6-14.8); White Blood Cell Count 11.2 X10^3/uL (4.5-11.0)
[2023-11-29 13:05] LABS: BUN Creatinine Ratio 28.8 (6-22); Calcium 9.2 mg/dL (8.4-10.2); Carbon Dioxide 18 mmol/L (22-32); Chloride 105 mmol/L (98-107); Estimated Glomerular Filt Rate 13 mL/min (>60); Glucose 170 mg/dL (70-100); HEMOLYSIS < 15 (0-50); Potassium 5.1 mmol/L (3.4-5.1); Sodium 131 mmol/L (137-145)
[2023-11-29 13:46] LABS: Blood Urea Nitrogen 113 mg/dL (7-17)
== END ==
PROVIDERS: PCP Family Medicine; Referring Provider Family Medicine; Visit Provider Family Medicine
DX: Z87.448 Personal history of other diseases of urinary system (principal); N17.9 Acute kidney failure, unspecified; M31.30 Wegener's granulomatosis without renal involvement; D64.9 Anemia, unspecified
CPT/HCPCS: 36415; 80048; 85025

== ENCOUNTER 2023-11-30 07:24 | Emergency (ER) | payer OTHER, MEDICAID, SELFPAY ==
[2023-11-08 02:06] VITALS: BMI 19.3
[2023-11-30 07:32] VITALS: BP 160/80; PULSE 76; RESP 16; TEMP 37.1; O2SAT 100; BMI 18.6
[2023-11-30] MEDS: SODIUM CHLORIDE 0.9% FLUSH 10 ML IV ×2 (07:59→08:27)
--- NOTE | 2023-11-30 08:02 | ED_ITS ---
HPI - Recheck/Abnormal Lab/Rx General Chief Complaint: Recheck/Abnormal Lab/Rx Stated Complaint: declining kidney function/PCP ref/ Time Seen by Provider: 11/30/23 07:30 Source: patient Mode of arrival: Ambulatory Limitations: no limitations History of Present Illness HPI narrative: This is a 53-year-old female diagnosed with ATN and autoimmune vasculitis and hospitalized at [facility] discharged home on 60 mg daily of prednisone and received her 1st rituximab infusion while hospitalized. Patient had outpatient labs ordered yesterday she saw the results in the EMR was concern that her GFR had dropped and presents to the ED today. She has not been in touch with her nephrology team yet. She states she has been feeling improved since she left the hospital. Denies any fevers. No chest pain or shortness of breath. Denies any nausea or vomiting. Denies any diarrhea or constipation. States she has been making urine she has not appreciated a drop off or decrease in urine output. Patient states she has had a little bit of mild back pain which has improved. She states there was no discussion of dialysis while in the hospital. She is scheduled to have a 2nd infusion of rituximab on December 04. She was following with Dr. Risa Horne for Nephrology at [facility]. She is still on Bactrim daily. Patient denies any prior surgeries. No tobacco, occasional alcohol, no recreational drugs. Dr. Ladd was her primary care physician. Related Data Home Medications Medication Instructions Recorded Confirmed ferrous sulfate 325 mg (65 mg 325 mg PO DAILY 07/29/23 11/26/23 iron) tablet multivitamin 1 tab PO DAILY 07/29/23 11/26/23 pantoprazole 40 mg tablet,delayed 40 mg PO DAILY 11/26/23 11/26/23 release prednisone 20 mg tablet 60 mg PO DAILY 11/26/23 11/26/23 sulfamethoxazole 400 1 tab PO 3XW 11/26/23 11/26/23 mg-trimethoprim 80 mg tablet Allergies Allergy/AdvReac Type Severity Reaction Status Date / Time amoxicillin Allergy Intermediate Rash Verified 11/26/23 14:59 Review of Systems Review of Systems ROS Unobtainable: All systems reviewed & are unremarkable except as noted in HPI and below Patient History Medical History Acute kidney failure (~11/2023) History of ATN (~11/2023) Near-sightedness Family History Mother Cancer Brother Heart problem Social History household members: none Smoking Status: Never smoker alcohol intake: never Smoking Status: Never smoker alcohol intake frequency: holidays/special occasions only Substance Use Type: does not use Exam Narrative Exam Narrative: GENERAL: Alert and oriented x three, thin, well-appearing female in mild distress. HEENT: Head normocephalic, atraumatic, EOMI, pupils reactive, face symmetric, moist mucous membranes NECK: Supple, full range of motion CARDIOVASCULAR: Regular rate and rhythm without murmurs, rubs or gallops. RESPIRATORY: Breath sounds equal bilaterally, no wheezes rales or rhonchi. ABDOMEN: Soft, nontender. Normoactive bowel sounds all 4 quadrants. No guarding or rebound, rigidity, no mass : No CVA tenderness EXTREMITIES: Normal range of motion, no clubbing or edema. Neurovascularly intact NEUROLOGICAL: Cranial nerves II through XII grossly intact. Moving all extremities SKIN: Warm, dry, no petechiae, no rashes or lesions. Initial Vital Signs Initial Vital Signs: Vital Signs Temperature 98.8 F 11/30/23 07:32 Pulse Rate 76 11/30/23 07:32 Respiratory Rate 16 11/30/23 07:32 Blood Pressure 160/80 H 11/30/23 07:32 Pulse Oximetry 100 11/30/23 07:32 Oxygen Delivery Method Room Air 11/30/23 07:32 Course Orders Ordered: Discontinued Medications Sodium Chloride (Normal Saline 0.9%) 1,000 mls @ 150 mls/hr IV CONT ARCELIA Last Infusion: 11/30/23 10:12 Dose: Infused Documented By: Admin: 11/30/23 08:28 Dose: 150 mls/hr Documented By: RB Lidocaine HCl 4 ml/ Sodium (Chloride) 54 mls @ 324 mls/hr IV NOW ONE Stop: 11/30/23 09:39 Last Admin: 11/30/23 10:11 Dose: Not Given Documented By: MPO Sodium Chloride (Sodium Chloride 0.9% Flush) 10 ml IV BID ARCELIA Last Admin: 11/30/23 08:17 Dose: Not Given Documented By: RB Sodium Chloride (Sodium Chloride 0.9% Flush) 10 ml IV PRN PRN PRN Reason: Flush Last Admin: 11/30/23 07:59 Dose: 10 ml Documented By: RB Sodium Chloride (Sodium Chloride 0.9% Flush) 10 ml IV BID ARCELIA Last Admin: 11/30/23 08:27 Dose: 10 ml Documented By: RB Sodium Chloride (Sodium Chloride 0.9% Flush) 10 ml IV PRN PRN PRN Reason: Flush Vital Signs Vital signs: Vital Signs - 8 hr 11/30/23 07:32 Temperature 98.8 F Pulse Rate 76 Respiratory Rate 16 Blood Pressure 160/80 H Pulse Oximetry 100 Oxygen Delivery Method Room Air MDM - Recheck/Abnormal Lab/Rx Lab Data 11/30/23 08:30 11/30/23 08:30 Labs: Lab Results 11/30/23 11/30/23 Range/Units 08:30 10:00 WBC 11.9 H (4.5-11.0) X10^3/uL RBC 3.19 L (4.0-5.2) X10^6/uL Hgb 9.0 L (12.0-16.0) g/dL Hct 27.1 L (36-46) % MCV 85.2 (80-100) fL MCH 28.4 (26-34) PG MCHC 33.3 (30-36) % RDW 18.2 H (11.6-14.8) % Plt Count 228 (150-400) X10^3/uL Neut % (Auto) 78.4 H (50-75) % Lymph % (Auto) 13.2 L (25-40) % [place] % (Auto) 6.4 (3-14) % Eos % (Auto) 1.7 L (2-4) % Baso % (Auto) 0.3 (0-2) % Neut # (Auto) 9300 H (0806-7894) /uL Lymph # (Auto) 1600 (5087-5806) /uL [place] # (Auto) 800 (0-900) /uL Eos # (Auto) 200 (0-450) /uL Baso # (Auto) 0 (0-100) /uL Sodium 133 L (137-145) mmol/L Potassium 4.8 (3.4-5.1) mmol/L Chloride 108 H (98-107) mmol/L Carbon Dioxide 20 L (22-32) mmol/L BUN 112 H* (7-17) mg/dL Creatinine 3.16 H (0.52-1.04) mg/dL Estimated GFR 17 L (>60) mL/min BUN/Creatinine Ratio 35.4 H (6-22) Glucose 88 (70-100) mg/dL Calcium 8.7 (8.4-10.2) mg/dL Total Bilirubin 0.3 (0.2-1.3) mg/dL AST 24 (14-36) IU/L ALT 41 H (<35) IU/L Alkaline Phosphatase 75 (38-126) U/L Total Protein 6.4 (6.3-8.2) g/dL Albumin 3.4 L (3.5-5.0) g/dL Globulin 3.0 (1.7-4.1) g/dL Albumin/Globulin Ratio 1.1 (1.0-2.8) Urine Color Yellow Urine Appearance Clear Urine pH 5.5 (4.5-8.0) Ur Specific [place] 1.020 (1.000-1.035) Urine Protein 3+ H (Negative) Urine Glucose (UA) Negative (Negative) g/dL Urine Ketones Negative (NEGATIVE) Urine Occult Blood 3+ H (Negative) Urine Nitrate Negative (Negative) Urine Bilirubin Negative (NEGATIVE) Urine Urobilinogen 0.2 (0.2) E.U./dL Ur Leukocyte Esterase Trace H (NEGATIVE) Urine RBC 10-30/hpf H (0-5/HPF) Urine WBC 5-10/hpf H (0-5/HPF) Ur Squamous Epith Cells None seen (0-5/HPF) Amorphous Sediment 1+ Urine Bacteria None seen (None) Ur Culture Indicated? Specimen cultured Vol Urine Centrifuged 10ml (spun) MDM Narrative Medical decision making narrative: Patient had labs drawn yesterday showed a white count of 11, hemoglobin of 10 platelets of 262 predominance of neutrophils. Patient had sodium of 131 potassium of 5 1 chloride of 105 with a CO2 18, BUN of 113 and creatinine of 3.92 with a glucose of 170. CMP shows a sodium of 133 potassium of 4.8 chloride of 108 CO2 20 with a BUN of 112, creatinine of 3.16 closer to prior GFR of 17 on 11/10/2023 with a glucose of 88. Spoke with Dr. Garibay, nephrology she notes patient should continue the Bactrim along with the prednisone is for autoimmune disease and not infection. She asked the patient to call the office Friday to touch base to see if they want to do any additional testing she does have follow up arranged on December 04. Updated the patient who feels comfortable with this plan. Discharge Plan Departure Patient Disposition: Home Clinical Impression: CKD (chronic kidney disease), Autoimmune vasculitis Activity Restrictions/Additional Instructions: Please follow up with your nephrology team, call the office on Friday to see if they would like any additional testing or sooner follow up than your December 04 visit. I hope you continue to feel improved. Continue your home medications as prescribed. I did speak with the nephrology team they would like you to keep taking all of these medications. Please return for fevers new or worsening chest pain or shortness of breath, new swelling or increase in weight, persistent vomiting, decreased or no urine output or other new or concerning changes. Prescriptions: No Action pantoprazole 40 mg tablet,delayed release (DR/EC) 40 mg PO DAILY prednisone 20 mg tablet 60 mg PO DAILY sulfamethoxazole-trimethoprim 400-80 mg tablet 1 tab PO 3XW ferrous sulfate 325 mg (65 mg iron) tablet 325 mg PO DAILY multivitamin Tablet 1 tab PO DAILY Rx Instructions: Sheba brand, contains 1000 iu Referrals: Imelda Ladd MD [Primary Care Provider] - Stand Alone Forms: Patient Portal/API
[2023-11-30] MEDS: SODIUM CHLORIDE 0.9% 1,000 ML 150 ML IV (08:28)
[2023-11-30 08:37] LABS: Add Manual Diff / Slide Review NO; Basophils Absolute Auto 0 /uL (0-100); Basophils Percent Auto 0.3 % (0-2); Eosinophils Absolute Auto 200 /uL (0-450); Eosinophils Percent Auto 1.7 % (2-4); Hematocrit 27.1 % (36-46); Lymphocytes Absolute Auto 1600 /uL (1100-4500); Lymphocytes Percent Auto 13.2 % (25-40); Mean Corpuscular HGB Conc 33.3 % (30-36); Mean Corpuscular Hemoglobin 28.4 PG (26-34); Mean Corpuscular Volume 85.2 fL (80-100); Monocytes Absolute Auto 800 /uL (0-900); Monocytes Percent Auto 6.4 % (3-14); Neutrophils Absolute Auto 9300 /uL (1500-7000); Neutrophils Percent Auto 78.4 % (50-75); Platelet Count 228 X10^3/uL (150-400); Red Blood Cell Count 3.19 X10^6/uL (4.0-5.2); Red Cell Distribution Width 18.2 % (11.6-14.8); White Blood Cell Count 11.9 X10^3/uL (4.5-11.0)
[2023-11-30 08:48] LABS: Alanine Aminotransferase 41 IU/L (<35); Albumin 3.4 g/dL (3.5-5.0); Albumin Globulin Ratio 1.1 (1.0-2.8); Alkaline Phosphatase 75 U/L (38-126); Aspartate Aminotransferase 24 IU/L (14-36); BUN Creatinine Ratio 35.4 (6-22); Bilirubin Total 0.3 mg/dL (0.2-1.3); Calcium 8.7 mg/dL (8.4-10.2); Carbon Dioxide 20 mmol/L (22-32); Chloride 108 mmol/L (98-107); Estimated Glomerular Filt Rate 17 mL/min (>60); Glucose 88 mg/dL (70-100); HEMOLYSIS < 15 (0-50); Potassium 4.8 mmol/L (3.4-5.1); Sodium 133 mmol/L (137-145); Total Protein 6.4 g/dL (6.3-8.2)
[2023-11-30 08:50] LABS: Blood Urea Nitrogen 112 mg/dL (7-17)
[2023-11-30 10:10] LABS: Appearance Urine UA CLEAR; Bilirubin Urine UA NEGATIVE (NEGATIVE); Color Urine UA YELLOW; Glucose Urine UA NEGATIVE (Negative); Ketones Urine UA NEGATIVE (NEGATIVE); Leukocyte Esterase Urine UA TRACE (NEGATIVE); Nitrite Urine UA NEGATIVE (Negative); Occult Blood Urine UA 3+ (Negative); Protein Urine UA 3+ (Negative); Urobilinogen Urine UA 0.2 E.U./dL (0.2)
[2023-11-30 10:11] LABS: pH Urine UA 5.5 (4.5-8.0)
[2023-11-30 10:13] VITALS: BP 142/64; PULSE 65; RESP 20; TEMP 36.6; O2SAT 99
[2023-11-30 10:16] LABS: Urine Volume 10mL (spun)
[2023-11-30 10:17] LABS: Amorphous Sediment Urine 1+; Bacteria Urine None Seen; Culture Indicated Urine Specimen Cultured; RBC Urine 10-30/HPF (0-5/HPF); Squamous Epithelial Cell Urine None Seen (0-5/HPF); WBC Urine 5-10/HPF (0-5/HPF)
== END 2023-11-30 10:15 | disposition home or self-care (01) ==
PROVIDERS: Emergency Provider Emergency Medicine; PCP Family Medicine
DX: N18.9 Chronic kidney disease, unspecified (principal); I77.6 Arteritis, unspecified
CPT/HCPCS: 36415; 80053; 81001; 85025; 87086; 99284

== ENCOUNTER 2024-02-12 06:47 | Day surgery (SDC) | payer OTHER, MEDICAID, SELFPAY ==
[2023-11-08 02:06] VITALS: BMI 19.3
[2024-02-12 07:26] VITALS: BP 149/85; PULSE 77; RESP 16; TEMP 37.7; O2SAT 100
[2024-02-12] MEDS: LACTATED RINGERS 1,000 ML 42 ML IV (07:59)
--- NOTE | 2024-02-12 08:17 | PM.HP.1 ---
History of Present Illness History of Present Illness Date Patient Seen: 02/12/24 Time Patient Seen: 08:17 Chief complaint: NJC Narrative: Keven is a 53-year-old woman with anemia who has never had a colonoscopy. See the office note from November for details. She did vomit much of her prep. [facility] Medical History Acute kidney failure (~11/2023) History of ATN (~11/2023) Near-sightedness Family History Mother Cancer Brother Heart problem Social History household members: none Smoking Status: Never smoker alcohol intake: never Meds Home Medications and Allergies Home Medications Medication Instructions Recorded Confirmed Type ferrous sulfate 325 mg (65 mg 325 mg PO DAILY 07/29/23 02/12/24 History iron) tablet multivitamin 1 tab PO DAILY 07/29/23 02/12/24 History pantoprazole 40 mg tablet,delayed 40 mg PO DAILY 11/26/23 02/12/24 History release prednisone 20 mg tablet 60 mg PO DAILY 11/26/23 02/12/24 History peg 3350-electrolytes 236 240 ml PO Q10M #4,000 mL 01/09/24 Rx gram-22.74 gram-6.74 gram-5.86 gram solution (Golytely) cyanocobalamin (vitamin B-12) See Rx Instructions IM .COMPLEX #1 01/20/24 02/12/24 Rx 1,000 mcg/mL injection solution mL amlodipine 5 mg tablet 5 mg PO DAILY 02/12/24 02/12/24 History torsemide 20 mg tablet 40 mg PO DAILY 02/12/24 02/12/24 History Allergies Allergy/AdvReac Type Severity Reaction Status Date / Time amoxicillin Allergy Intermediate Rash Verified 02/12/24 07:23 Exam Vital Signs (past 8 hours): - 02/12/24 07:26 Temperature 99.9 F H Pulse Rate 77 Respiratory Rate 16 Blood Pressure 149/85 H Pulse Oximetry 100 Oxygen Delivery Method Room Air Oxygen Delivery Method Room Air Const General: No acute distress Resp Effort & Inspection: normal respiratory effort Assessment & Plan Assessment and plan (1) Anemia: Qualifiers: Anemia type: unspecified type Qualified Code(s): D64.9 - Anemia, unspecified Status: Acute Plan We will proceed with a colonoscopy. We will attempt without anesthesia but she consents to anesthesia if necessary. Time-Based Coding :: [TOTAL MINUTES] spent with patient and on the chart (including review of chart, obtaining history, exam, reviewing outside data, placing orders, documenting exam and treatment plan, and counseling patient) on [DATE].
--- NOTE | 2024-02-12 09:31 | PM.OP.COLON ---
Operative Date/Time/Diagnoses Date of procedure: 02/12/24 Time of procedure: 09:31 Pre-op diagnosis: Anemia Post-op diagnosis: same Procedure & Clinicians Study performed: Colonoscopy Same procedure as scheduled: Yes Surgeon: Frankie Magallanes Procedure Notes Procedure in detail: Surgeon: Frankie Magallanes MD Anesthesia: None Procedure: The patient was brought to the endoscopy suite, placed in left lateral decubitus position. The patient was connected to monitoring devices. A time-out was performed. No sedation was administered in accordance with the patient's preference. A digital rectal exam was performed and was normal. The scope was then inserted and advanced to the ascending colon. Prep was inadequate to safely advance the scope any further and the patient was in severe discomfort. The procedure was aborted. The patient was awakened and brought to recovery. Scope withdrawal time: Not applicable Sedation time: Not applicable EBL: 0 Findings: Inadequate prep Post-procedure Plan for aftercare: Reschedule the procedure with additional prep Disposition: PACU
[2024-02-12 09:35] VITALS: BP 150/90; PULSE 82; RESP 16; TEMP 36.5; O2SAT 97
== END 2024-02-12 09:51 | disposition home or self-care (01) ==
PROVIDERS: PCP Family Medicine; Referring Provider Surgery; Visit Provider Surgery
PROC: 0DJD8ZZ Inspection of Lower Intestinal Tract, Via Natural or Artificial Opening Endoscopic (ICD-10-PCS; CPT 45378; principal; 2024-02-12 07:45)
DX: D64.9 Anemia, unspecified (principal); Z53.09 Procedure and treatment not carried out because of other contraindication
CPT/HCPCS: 45378; J2704

== ENCOUNTER → 2024-03-16 10:15 | Outpatient (CLI) | payer OTHER, MEDICAID, SELFPAY ==
[2023-11-08 02:06] VITALS: BMI 19.3
[2024-03-16 11:10] LABS: Add Manual Diff / Slide Review NO; Basophils Absolute Auto 0 /uL (0-100); Basophils Percent Auto 0.6 % (0-2); Eosinophils Absolute Auto 300 /uL (0-450); Eosinophils Percent Auto 4.3 % (2-4); Hematocrit 27.5 % (36-46); Hemoglobin 9.6 g/dL (12.0-16.0); Lymphocytes Absolute Auto 1600 /uL (1100-4500); Lymphocytes Percent Auto 27.7 % (25-40); Mean Corpuscular Hemoglobin 32.6 PG (26-34); Mean Corpuscular Volume 93.2 fL (80-100); Monocytes Absolute Auto 600 /uL (0-900); Monocytes Percent Auto 9.8 % (3-14); Neutrophils Absolute Auto 3400 /uL (1500-7000); Neutrophils Percent Auto 57.6 % (50-75); Platelet Count 218 X10^3/uL (150-400); Red Blood Cell Count 2.95 X10^6/uL (4.0-5.2); White Blood Cell Count 5.9 X10^3/uL (4.5-11.0)
[2024-03-16 11:37] LABS: Alanine Aminotransferase 28 IU/L (<35); Albumin Globulin Ratio 1.9 (1.0-2.8); Alkaline Phosphatase 71 U/L (38-126); Aspartate Aminotransferase 26 IU/L (14-36); BUN Creatinine Ratio 27.3 (6-22); Bilirubin Total 0.4 mg/dL (0.2-1.3); Blood Urea Nitrogen 77 mg/dL (7-17); Calcium 9.4 mg/dL (8.4-10.2); Carbon Dioxide 22 mmol/L (22-32); Chloride 107 mmol/L (98-107); Estimated Glomerular Filt Rate 19 mL/min (>60); Globulin 2.1 g/dL (1.7-4.1); Glucose 87 mg/dL (70-100); HEMOLYSIS < 15 (0-50); Potassium 4.4 mmol/L (3.4-5.1); Sodium 138 mmol/L (137-145); Total Protein 6.1 g/dL (6.3-8.2)
== END ==
LOC: LAB 10:22
PROVIDERS: PCP Family Medicine; Referring Provider Family Medicine; Visit Provider Family Medicine
DX: N17.0 Acute kidney failure with tubular necrosis (principal); D64.9 Anemia, unspecified
CPT/HCPCS: 36415; 80053; 85025

== ENCOUNTER → 2024-05-29 08:33 | Outpatient (CLI) | payer OTHER, MEDICAID, SELFPAY ==
[2023-11-08 02:06] VITALS: BMI 19.3
[2024-05-29 10:00] LABS: Hematocrit 27.2 % (36-46); Hemoglobin 9.5 g/dL (12.0-16.0)
[2024-05-29 10:13] LABS: BUN Creatinine Ratio 21.5 (6-22); Blood Urea Nitrogen 57 mg/dL (7-17); Calcium 9.4 mg/dL (8.4-10.2); Carbon Dioxide 24 mmol/L (22-32); Chloride 105 mmol/L (98-107); Estimated Glomerular Filt Rate 21 mL/min (>60); Glucose 96 mg/dL (70-100); HEMOLYSIS < 15 (0-50); Potassium 5.6 mmol/L (3.4-5.1); Sodium 133 mmol/L (137-145)
[2024-05-29 11:11] LABS: Creatinine Urine Random 32.94 mg/dL; Protein (Total) Urine Random 92 mg/dL (0-12); Protein Creatinine Ratio Urine 2.79 GRAM/24H
== END ==
PROVIDERS: PCP Family Medicine; Referring Provider Student in an Organized Health Care Education/Training Program; Visit Provider Student in an Organized Health Care Education/Training Program
DX: N05.9 Unspecified nephritic syndrome with unspecified morphologic changes (principal); D64.9 Anemia, unspecified; R80.9 Proteinuria, unspecified
CPT/HCPCS: 36415; 80048; 82570; 84156; 85014; 85018

== ENCOUNTER → 2024-06-07 13:50 | Outpatient (CLI) | payer OTHER, MEDICAID, SELFPAY ==
[2023-11-08 02:06] VITALS: BMI 19.3
[2024-06-07 15:01] LABS: BUN Creatinine Ratio 21.6 (6-22); Blood Urea Nitrogen 60 mg/dL (7-17); Calcium 9.4 mg/dL (8.4-10.2); Carbon Dioxide 25 mmol/L (22-32); Chloride 103 mmol/L (98-107); Estimated Glomerular Filt Rate 20 mL/min (>60); Glucose 95 mg/dL (70-100); HEMOLYSIS < 15 (0-50); Sodium 136 mmol/L (137-145)
== END ==
PROVIDERS: PCP Family Medicine; Referring Provider Student in an Organized Health Care Education/Training Program; Visit Provider Student in an Organized Health Care Education/Training Program
DX: N05.9 Unspecified nephritic syndrome with unspecified morphologic changes (principal)
CPT/HCPCS: 36415; 80048

== ENCOUNTER → 2024-06-26 09:44 | Outpatient (CLI) | payer OTHER, MEDICAID, SELFPAY ==
[2023-11-08 02:06] VITALS: BMI 19.3
[2024-06-26 10:48] LABS: Hematocrit 27.5 % (36-46); Hemoglobin 9.4 g/dL (12.0-16.0)
[2024-06-26 10:57] LABS: Appearance Urine UA CLEAR; Bilirubin Urine UA NEGATIVE (NEGATIVE); Color Urine UA YELLOW; Glucose Urine UA NEGATIVE (Negative); Ketones Urine UA NEGATIVE (NEGATIVE); Leukocyte Esterase Urine UA NEGATIVE (NEGATIVE); Nitrite Urine UA NEGATIVE (Negative); Occult Blood Urine UA TRACE-INTACT (Negative); Protein Urine UA 2+ (Negative); Urobilinogen Urine UA 0.2 E.U./dL (0.2)
[2024-06-26 11:21] LABS: Bacteria Urine None Seen; Culture Indicated Urine Cult Not Indicated; RBC Urine 1-5/HPF (0-5/HPF); Squamous Epithelial Cell Urine 1-5 /HPF (0-5/HPF); Urine Volume 10mL (spun); WBC Urine 0-1/HPF (0-5/HPF)
[2024-06-26 11:26] LABS: Blood Urea Nitrogen 65 mg/dL (7-17); Calcium 9.5 mg/dL (8.4-10.2); Carbon Dioxide 20 mmol/L (22-32); Chloride 109 mmol/L (98-107); Estimated Glomerular Filt Rate 19 mL/min (>60); Glucose 89 mg/dL (70-100); HEMOLYSIS < 15 (0-50); Sodium 138 mmol/L (137-145)
[2024-06-26 11:28] LABS: Protein (Total) Urine Random 117 mg/dL (0-12); Protein Creatinine Ratio Urine 2.91 GRAM/24H
[2024-06-26 11:42] LABS: Potassium 5.4 mmol/L (3.4-5.1)
[2024-06-27 11:08] LABS: Parathyroid Hormone Int 198 pg/mL (15-65)
== END ==
LOC: LAB 09:46
PROVIDERS: PCP Family Medicine; Referring Provider Student in an Organized Health Care Education/Training Program; Visit Provider Student in an Organized Health Care Education/Training Program
DX: N05.9 Unspecified nephritic syndrome with unspecified morphologic changes (principal); D70.9 Neutropenia, unspecified; D63.1 Anemia in chronic kidney disease; E83.30 Disorder of phosphorus metabolism, unspecified; N25.81 Secondary hyperparathyroidism of renal origin; N30.00 Acute cystitis without hematuria; R80.9 Proteinuria, unspecified
CPT/HCPCS: 36415; 80048; 81001; 82570; 83970; 84100; 84156; 85014; 85018

== ENCOUNTER → 2024-07-06 14:02 | Outpatient (CLI) | payer OTHER, MEDICAID, SELFPAY ==
[2023-11-08 02:06] VITALS: BMI 19.3
[2024-07-06 15:48] LABS: HEMOLYSIS < 15 (0-50); Potassium 5.2 mmol/L (3.4-5.1)
== END ==
PROVIDERS: PCP Family Medicine; Referring Provider Student in an Organized Health Care Education/Training Program; Visit Provider Student in an Organized Health Care Education/Training Program
DX: E87.5 Hyperkalemia (principal)
CPT/HCPCS: 36415; 84132

== ENCOUNTER → 2024-07-26 09:17 | Outpatient (CLI) | payer OTHER, SELFPAY ==
[2024-07-26 08:55] VITALS: BMI 19.3
[2024-07-26 10:22] LABS: HEMOLYSIS < 15 (0-50); Potassium 4.5 mmol/L (3.4-5.1)
== END ==
PROVIDERS: PCP Family Medicine; Referring Provider Student in an Organized Health Care Education/Training Program; Visit Provider Student in an Organized Health Care Education/Training Program
DX: E87.5 Hyperkalemia (principal)
CPT/HCPCS: 36415; 84132

== ENCOUNTER → 2024-08-20 08:41 | Outpatient (CLI) | payer OTHER, SELFPAY ==
[2024-07-26 08:55] VITALS: BMI 19.3
[2024-08-20 10:13] LABS: Hematocrit 25.7 % (36-46); Hemoglobin 8.9 g/dL (12.0-16.0)
[2024-08-20 10:42] LABS: Creatinine Urine Random 29.48 mg/dL; Protein (Total) Urine Random 115 mg/dL (0-12)
[2024-08-20 10:44] LABS: BUN Creatinine Ratio 21.5 (6-22); Blood Urea Nitrogen 65 mg/dL (7-17); Calcium 9.1 mg/dL (8.4-10.2); Carbon Dioxide 25 mmol/L (22-32); Chloride 105 mmol/L (98-107); Estimated Glomerular Filt Rate 18 mL/min (>60); Glucose 87 mg/dL (70-100); HEMOLYSIS < 15 (0-50); Sodium 138 mmol/L (137-145)
[2024-08-21 10:11] LABS: Parathyroid Hormone Int 264 pg/mL (15-65)
== END ==
PROVIDERS: PCP Family Medicine; Referring Provider Student in an Organized Health Care Education/Training Program; Visit Provider Student in an Organized Health Care Education/Training Program
DX: N05.9 Unspecified nephritic syndrome with unspecified morphologic changes (principal); D70.9 Neutropenia, unspecified; D63.1 Anemia in chronic kidney disease; R80.9 Proteinuria, unspecified; N25.81 Secondary hyperparathyroidism of renal origin
CPT/HCPCS: 36415; 80048; 82570; 83970; 84156; 85014; 85018

== ENCOUNTER → 2024-10-02 10:18 | Outpatient (CLI) | payer OTHER, SELFPAY ==
[2024-07-26 08:55] VITALS: BMI 19.3
[2024-10-02 11:30] LABS: Hematocrit 25.4 % (36-46); Hemoglobin 8.9 g/dL (12.0-16.0)
[2024-10-02 12:10] LABS: Creatinine Urine Random 43.01 mg/dL; Protein (Total) Urine Random 103 mg/dL (0-12); Protein Creatinine Ratio Urine 2.39 GRAM/24H
[2024-10-02 12:14] LABS: BUN Creatinine Ratio 20.7 (6-22); Blood Urea Nitrogen 58 mg/dL (7-17); Calcium 8.9 mg/dL (8.4-10.2); Carbon Dioxide 27 mmol/L (22-32); Chloride 104 mmol/L (98-107); Estimated Glomerular Filt Rate 19 mL/min (>60); Glucose 85 mg/dL (70-100); HEMOLYSIS < 15 (0-50); Sodium 136 mmol/L (137-145)
[2024-10-02 12:15] LABS: Potassium 5.8 mmol/L (3.4-5.1)
[2024-10-03 07:36] LABS: Parathyroid Hormone Int 332 pg/mL (15-65)
== END ==
PROVIDERS: PCP Family Medicine; Referring Provider Student in an Organized Health Care Education/Training Program; Visit Provider Student in an Organized Health Care Education/Training Program
DX: N05.9 Unspecified nephritic syndrome with unspecified morphologic changes (principal); D70.9 Neutropenia, unspecified; D63.1 Anemia in chronic kidney disease; N25.81 Secondary hyperparathyroidism of renal origin; R80.9 Proteinuria, unspecified
CPT/HCPCS: 36415; 80048; 82570; 83970; 84156; 85014; 85018

== ENCOUNTER → 2024-11-23 09:08 | Outpatient (CLI) | payer OTHER, SELFPAY ==
[2024-07-26 08:55] VITALS: BMI 19.3
[2024-11-23 10:41] LABS: Hematocrit 25.6 % (36-46); Hemoglobin 8.8 g/dL (12.0-16.0)
[2024-11-23 11:17] LABS: BUN Creatinine Ratio 18.5 (6-22); Blood Urea Nitrogen 56 mg/dL (7-17); Calcium 9.1 mg/dL (8.4-10.2); Carbon Dioxide 29 mmol/L (22-32); Chloride 100 mmol/L (98-107); Estimated Glomerular Filt Rate 18 mL/min (>60); Glucose 97 mg/dL (70-99); HEMOLYSIS < 15 (0-50); Potassium 4.6 mmol/L (3.4-5.1); Sodium 136 mmol/L (137-145)
[2024-11-23 12:02] LABS: Protein (Total) Urine Random 98 mg/dL (0-12); Protein Creatinine Ratio Urine 1.25 GRAM/24H
[2024-11-24 04:08] LABS: Parathyroid Hormone Int 242 pg/mL (15-65)
== END ==
PROVIDERS: PCP Family Medicine; Referring Provider Student in an Organized Health Care Education/Training Program; Visit Provider Student in an Organized Health Care Education/Training Program
DX: N05.9 Unspecified nephritic syndrome with unspecified morphologic changes (principal); D70.9 Neutropenia, unspecified; D63.1 Anemia in chronic kidney disease; R80.9 Proteinuria, unspecified; N25.81 Secondary hyperparathyroidism of renal origin
CPT/HCPCS: 36415; 80048; 82570; 83970; 84156; 85014; 85018

== ENCOUNTER → 2025-02-09 08:45 | Outpatient (CLI) | payer OTHER, SELFPAY ==
[2024-07-26 08:55] VITALS: BMI 19.3
[2025-02-09 09:40] LABS: Hematocrit 24.9 % (36-46); Hemoglobin 8.8 g/dL (12.0-16.0)
[2025-02-09 10:13] LABS: Blood Urea Nitrogen 49 mg/dL (7-17); Calcium 9.1 mg/dL (8.4-10.2); Carbon Dioxide 30 mmol/L (22-32); Chloride 101 mmol/L (98-107); Estimated Glomerular Filt Rate 19 mL/min (>60); Glucose 94 mg/dL (70-99); HEMOLYSIS < 15 (0-50); Sodium 136 mmol/L (137-145)
[2025-02-09 10:18] LABS: Potassium 5.6 mmol/L (3.4-5.1)
[2025-02-09 11:36] LABS: Protein (Total) Urine Random 74 mg/dL (0-12); Protein Creatinine Ratio Urine 2.11 GRAM/24H
== END ==
PROVIDERS: PCP Family Medicine; Referring Provider Student in an Organized Health Care Education/Training Program; Visit Provider Student in an Organized Health Care Education/Training Program
DX: D70.9 Neutropenia, unspecified (principal); N05.9 Unspecified nephritic syndrome with unspecified morphologic changes; R80.9 Proteinuria, unspecified; D63.1 Anemia in chronic kidney disease; N25.81 Secondary hyperparathyroidism of renal origin
CPT/HCPCS: 36415; 80048; 82570; 83970; 84156; 85014; 85018

== ENCOUNTER → 2025-03-12 09:33 | Outpatient (CLI) | payer OTHER, SELFPAY ==
[2024-07-26 08:55] VITALS: BMI 19.3
[2025-03-12 11:48] LABS: Add Manual Diff / Slide Review NO; Hematocrit 27.2 % (36-46); Hemoglobin 9.6 g/dL (12.0-16.0); Lymphocytes Absolute Auto 1100 /uL (1100-4500); Mean Corpuscular HGB Conc 35.5 % (30-36); Mean Corpuscular Hemoglobin 32.5 PG (26-34); Mean Corpuscular Volume 91.5 fL (80-100); Platelet Count 204 X10^3/uL (150-400)
[2025-03-12 12:07] LABS: Alanine Aminotransferase 19 IU/L (<35); Albumin 4.5 g/dL (3.5-5.0); Albumin Globulin Ratio 1.7 (1.0-2.8); Alkaline Phosphatase 99 U/L (38-126); Blood Urea Nitrogen 49 mg/dL (7-17); Calcium 9.4 mg/dL (8.4-10.2); Carbon Dioxide 25 mmol/L (22-32); Chloride 101 mmol/L (98-107); Estimated Glomerular Filt Rate 16 mL/min (>60); Globulin 2.7 g/dL (1.7-4.1); Glucose 95 mg/dL (70-99); HEMOLYSIS < 15 (0-50); Potassium 5.1 mmol/L (3.4-5.1); Sodium 135 mmol/L (137-145); Total Protein 7.2 g/dL (6.3-8.2)
[2025-03-12 12:55] LABS: Vitamin B12 997 pg/mL (239-931)
[2025-03-12 13:37] LABS: Folate > 20.0 ng/mL (2.76-20.0)
== END ==
PROVIDERS: PCP Family Medicine; Referring Provider Internal Medicine Hematology & Oncology; Visit Provider Internal Medicine Hematology & Oncology
DX: D50.9 Iron deficiency anemia, unspecified (principal); D51.9 Vitamin B12 deficiency anemia, unspecified; D52.9 Folate deficiency anemia, unspecified; Z09 Encounter for follow-up examination after completed treatment for conditions other than malignant neoplasm
CPT/HCPCS: 36415; 80053; 82607; 82746; 83921; 85025

== ENCOUNTER → 2025-04-15 08:50 | Outpatient (CLI) | payer OTHER, SELFPAY ==
[2025-04-06 11:23] VITALS: BMI 19.3
[2025-04-15 09:36] LABS: Hemoglobin 9.6 g/dL (12.0-16.0)
[2025-04-15 10:25] LABS: Albumin 4.3 g/dL (3.5-5.0); Blood Urea Nitrogen 40 mg/dL (7-17); Calcium 9.4 mg/dL (8.4-10.2); Carbon Dioxide 28 mmol/L (22-32); Chloride 100 mmol/L (98-107); Estimated Glomerular Filt Rate 19 mL/min (>60); Glucose 96 mg/dL (70-99); HEMOLYSIS < 15 (0-50); Phosphorous 4.5 mg/dL (2.5-4.5); Potassium 4.7 mmol/L (3.4-5.1); Sodium 136 mmol/L (137-145)
[2025-04-15 10:27] LABS: HDL Cholesterol 107 mg/dL (40-60); Triglycerides 107 mg/dL (35-150)
[2025-04-15 10:29] LABS: HEMOLYSIS < 15 (0-50); Iron 84 ug/dL (37-170)
[2025-04-15 10:33] LABS: Protein (Total) Urine Random 71 mg/dL (0-12); Protein Creatinine Ratio Urine 1.82 GRAM/24H
[2025-04-15 10:43] LABS: Cholesterol 333 mg/dL (140-199)
[2025-04-15 10:45] LABS: Vitamin D 25 Hydroxy (D3) 37.3 ng/mL (30.0-100.0)
[2025-04-15 10:49] LABS: Percent Iron Saturation 35 % (15-50); Total Iron Binding Capacity 241 ug/dL (265-497); Transferrin 225 mg/dL (206-381)
[2025-04-15 11:00] LABS: Ferritin 244 ng/mL (11-264)
[2025-04-16 07:36] LABS: Calcium 9.4 mg/dL (8.7-10.2); Parathyroid Hormone, Intact 185 pg/mL (15-65)
== END ==
PROVIDERS: PCP Family Medicine; Referring Provider Family Medicine; Visit Provider Student in an Organized Health Care Education/Training Program
DX: N18.4 Chronic kidney disease, stage 4 (severe) (principal); Z13.6 Encounter for screening for cardiovascular disorders; E55.9 Vitamin D deficiency, unspecified
CPT/HCPCS: 36415; 80061; 80069; 82306; 82310; 82570; 82728; 83540; 83550; 83970; 84156; 85018